=== PATIENT | male | born 1950 | race Caucasian/White ===

== ENCOUNTER 2020-01-19 19:06 | Inpatient (IN) | payer MEDICARE ==
[~2020-01-19] VITALS: Ht 172.7 cm; Wt 58.3 kg
[2020-01-19 19:52] LABS: BASOPHILS # (AUTO) 0.1 (0.0-0.1); EOSINOPHILS % 14.1 % (0.0-6.0); HEMATOCRIT 31.6 % (38.2-49.6); HEMOGLOBIN 10.5 g/dL (14.0-18.0); LYMPHOCYTES # (AUTO) 1.5 (1.0-3.2); LYMPHOCYTES % 20.5 % (18.0-39.1); MEAN CORPUSCULAR HEMOGLOBIN 33.2 pg (28-32); MEAN CORPUSCULAR HGB CONC 33.2 g/dL (31-35); MONOCYTES # (AUTO) 0.5 (0.2-0.8); NEUTROPHILS # (AUTO) 4.2 (2.1-6.9); NEUTROPHILS % 57.1 % (38.7-80.0); PLATELET COUNT 82 x10e3/uL (140-360); RED BLOOD COUNT 3.16 x10e6/uL (4.3-5.7); RED CELL DISTRIBUTION WIDTH 15.2 % (11.7-14.4)
[2020-01-19 20:02] LABS: BILIRUBIN,URINE NEGATIVE (NEGATIVE); CLARITY,URINE HAZY (CLEAR); COLOR,URINE YELLOW (YELLOW); INR 1.12; KETONES,URINE NEGATIVE (NEGATIVE); LEUKOCYTE ESTERASE ,URINE NEGATIVE (NEGATIVE); NITRITE,URINE NEGATIVE (NEGATIVE); PROTEIN,URINE DIPSTICK NEGATIVE (NEGATIVE); URINE UROBILINOGEN 0.2 mg/dL (0.2 - 1)
[2020-01-19 20:03] LABS: BACTERIA,URINE FEW /HPF; EPITHELIAL CELLS,URINE FEW /LPF; PARTIAL THROMBOPLASTIN TIME 29.8 seconds (23.8-35.5); RBC,URINE 0-5 /HPF (0-5); WBC,URINE (MAN) 0-5 /HPF (0-5)
--- NOTE | 2020-01-19 20:05 | Emergency Department Note ---
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 Historian: Patient Arrival Mode: Car Onset (how long ago): day(s) (3) Location: RECTUM Quality: BLACK STOOLS Severity: moderate Onset quality: gradual Duration (how long): day(s) (3) Timing of current episode: intermittent Progression: unchanged Chronicity: new Context: Denies recent illness, Denies recent surgery Relieving factors: none Exacerbating factors: none Associated symptoms: Reports other (HAS FALLEN THREE TIMES IN THE PAST WEEK) Treatments prior to arrival: none Past Medical/Family History Physician Review I have reviewed the patient's past medical and family history. Any updates have been documented here. Past Medical History Recent Fever: No Clinical Suspicion of Infectio: No New/Unexplained Change in Ment: No Past Medical History: Hypertension, Diabetes, COPD Other Medical History: CIRRHOSIS EMPHYSEMA Other Surgery: HEART CATH EYE SX Social History Smoking Cessation: Former smoker Alcohol Use: Occasional Any Illegal Drug Use: No Review of Systems Review of Systems Constitutional: Reports no symptoms EENTM: Reports no symptoms Cardiovascular: Reports no symptoms Respiratory: Reports no symptoms Gastrointestinal: Reports as per HPI Genitourinary: Reports no symptoms Musculoskeletal: Reports no symptoms Integumentary: Reports no symptoms Neurological: Reports no symptoms Psychological: Reports no symptoms Endocrine: Reports no symptoms Hematological/Lymphatic: Reports no symptoms Physical Exam Related Data Allergies: Coded Allergies: No Known Allergies (Unverified , 01/19/20) Triage Vital Signs Vital Signs Date Time Temp Pulse Resp B/P (MAP) Pulse Ox O2 Delivery O2 Flow Rate FiO2 01/19/20 19:12 97.6 56 20 159/65 99 Room Air Vital signs reviewed: Yes Physical Exam CONSTITUTIONAL Constitutional: Present well-developed, Present well-nourished HENT HENT: Present normocephalic, Present atraumatic, Present oropharynx clear/moist, Present nose normal HENT L/R: Present left ext ear normal, Present right ext ear normal EYES Eyes: Reports PERRL, Reports conjunctivae normal NECK Neck: Present ROM normal PULMONARY Pulmonary: Present effort normal, Present breath sounds normal CARDIOVASCULAR Cardiovascular: Present regular rhythm, Present heart sounds normal, Present c apillary refill normal, Present normal rate GASTROINTESTINAL Abdominal: Present soft, Present nontender, Present bowel sounds normal GENITOURINARY Genitourinary: Present guaiac result (POSITIVE), Present other (BLACK STOOL ON RECTAL EXAM WITH RED TINGE) SKIN Skin: Present warm, Present dry MUSCULOSKELETAL Musculoskeletal: Present ROM normal NEUROLOGICAL Neurological: Present alert, Present oriented x 3, Present no gross motor or sensory deficits PSYCHOLOGICAL Psychological: Present mood/affect normal, Present judgement normal Results Laboratory Laboratory Laboratory Tests Test 01/19/20 19:40 01/19/20 19:30 Stool Occult Blood Positive (NEGATIVE) White Blood Count 7.31 x10e3/uL (4.8-10.8) Red Blood Count 3.16 x10e6/uL (4.3-5.7) Hemoglobin 10.5 g/dL (14.0-18.0) Hematocrit 31.6 % (38.2-49.6) Mean Corpuscular Volume 100.0 fL (81-99) Mean Corpuscular Hemoglobin 33.2 pg (28-32) Mean Corpuscular Hemoglobin Concent 33.2 g/dL (31-35) Red Cell Distribution Width 15.2 % (11.7-14.4) Platelet Count 82 x10e3/uL (140-360) Neutrophils (%) (Auto) 57.1 % (38.7-80.0) Lymphocytes (%) (Auto) 20.5 % (18.0-39.1) Monocytes (%) (Auto) 7.0 % (4.4-11.3) Eosinophils (%) (Auto) 14.1 % (0.0-6.0) Basophils (%) (Auto) 1.0 % (0.0-1.0) Neutrophils # (Auto) 4.2 (2.1-6.9) Lymphocytes # (Auto) 1.5 (1.0-3.2) Monocytes # (Auto) 0.5 (0.2-0.8) Eosinophils # (Auto) 1.0 (0.0-0.4) Basophils # (Auto) 0.1 (0.0-0.1) Absolute Immature Granulocyte (auto 0.02 x10e3/uL (0-0.1) Platelet Estimate Slightly decreased Platelet Morphology Comment Normal Prothrombin Time 15.0 seconds (11.9-14.5) Prothromb Time International Ratio 1.12 Activated Partial Thromboplast Time 29.8 seconds (23.8-35.5) Urine Color Yellow (YELLOW) Urine Clarity Hazy (CLEAR) Urine pH 5.5 (5 - 7) Urine Specific Page 1.025 (1.010-1.025) Urine Protein Negative (NEGATIVE) Urine Glucose (UA) Negative (NEGATIVE) Urine Ketones Negative (NEGATIVE) Urine Blood Negative (NEGATIVE) Urine Nitrite Negative (NEGATIVE) Urine Bilirubin Negative (NEGATIVE) Urine Urobilinogen 0.2 mg/dL (0.2 - 1) Urine Leukocyte Esterase Negative (NEGATIVE) Urine RBC 0-5 /HPF (0-5) Urine WBC 0-5 /HPF (0-5) Urine Epithelial Cells Few /LPF (NONE) Urine Bacteria Few /HPF (NONE) Sodium Level 140 mmol/L (136-145) Potassium Level 4.2 mmol/L (3.5-5.1) Chloride Level 108 mmol/L (98-107) Carbon Dioxide Level 23 mmol/L (22-29) Anion Gap 13.2 mmol/L (8-16) Blood Urea Nitrogen 29 mg/dL (7-26) Creatinine 1.56 mg/dL (0.72-1.25) Estimat Glomerular Filtration Rate 44 ML/MIN (60-) BUN/Creatinine Ratio 19 (6-25) Glucose Level 100 mg/dL (74-118) Calcium Level 9.2 mg/dL (8.4-10.2) Total Bilirubin 0.6 mg/dL (0.2-1.2) Aspartate Amino Transf (AST/SGOT) 27 IU/L (5-34) Alanine Aminotransferase (ALT/SGPT) 19 IU/L (0-55) Alkaline Phosphatase 50 IU/L (40-150) Creatine Kinase 47 IU/L (30-200) Creatine Kinase MB 1.80 ng/mL (0-5.0) Troponin I 0.010 ng/mL (0-0.300) Total Protein 6.4 g/dL (6.5-8.1) Albumin 3.7 g/dL (3.5-5.0) Globulin 2.7 g/dL (2.3-3.5) Albumin/Globulin Ratio 1.4 (0.8-2.0) Laboratory Tests Test 01/19/20 19:40 01/19/20 19:30 Stool Occult Blood Positive (NEGATIVE) Lab results reviewed: Yes Imaging Imaging results reviewed: Yes Impressions Procedure: [id number] DX/CHEST SINGLE (PORTABLE) Exam Date: 01/19/20 Exam Time: 1949 REPORT STATUS: Signed EXAMINATION: CHEST SINGLE (PORTABLE) INDICATION: ^WEAKNESS ^[id number] ^1949 ^Y COMPARISON: None FINDINGS: AP view TUBES and LINES: None. LUNGS: Hyperinflated lungs. Mild central vascular congestion. No definite focal consolidations. PLEURA: No pleural effusion or pneumothorax. HEART AND MEDIASTINUM: The cardiomediastinal silhouette is unremarkable. BONES AND SOFT TISSUES: No acute osseous lesion. Multiple upper left-sided old rib fracture deformities. Soft tissues are unremarkable. UPPER ABDOMEN: No free air under the diaphragm. IMPRESSION: Hyperinflated lungs with flattening of the diaphragms, representing changes of COPD. Mild central vascular congestion. No definite focal consolidations. Signed by: Dr. Carlos Childers MD on 01/19/2020 8:19 PM Dictated By: CARLOS CHILDERS MD 18 Transcribed By: NANO on 01/19/202018 COPY TO: MELVA RODRÍGUEZ MD~ Procedure: [id number] CT/CT BRAIN WO Exam Date: 01/19/20 Exam Time: 1999 REPORT STATUS: Signed EXAMINATION: Head CT without contrast. HISTORY:Multiple falls. COMPARISON:None. TECHNIQUE: Multidetector axial images were obtained from the foramen magnum to the vertex without contrast. The images were reconstructed using brain and bone algorithms. Thin section brain images were reformatted into coronal and sagittal planes. Dose modulation, iterative reconstruction, and/or weight based adjustment of the mA/kV was utilized to reduce the radiation dose to as low as reasonably achievable. Intravenous contrast: None IMAGE QUALITY: Suboptimal evaluation due to motion-related streak artifacts. FINDINGS: Skull/scalp: No lytic or blastic. lesions. No surgical changes. Parenchyma: Nonspecific bilateral frontoparietal patchy white matter hypodensity are likely related to small vessel ischemic changes. No acute hemorrhage, mass or acute major vascular territorial infarct. Arteries: No density suggestive of thrombosis. Atherosclerotic calcification in bilateral carotid siphon and V4 segment of left vertebral artery. Dural sinuses: No abnormal density suggestive of thrombosis. Ventricles: No hydrocephalus or displacement. Extra-axial spaces: No abnormal density. Brain volume: Mild generalized cerebral volume loss. Craniocervical junction: No mass, Chiari malformation, or basilar invagination. Sella: No mass. Paranasal/mastoid sinuses: Imaged portions unremarkable. IMPRESSION: No acute intracranial abnormality. Mild supratentorial white matter microvascular ischemic changes. Mild generalized cerebral volume loss. Signed by: Dr. Maria Esther Zheng M.D. on 01/19/2020 8:22 PM Dictated By: MARIA ESTHER ZHENG MD 21 Transcribed By: NANO on 01/19/202021 COPY TO: MELVA RODRÍGUEZ MD~ Assessment & Plan Medical Decision Making MDM PT WITH BLACK STOOLS AND 3 EPISODES OF FALLING THIS PAST WEEK CBC, CMP, PT/PTT, OCCULT STOOL, CT BRAIN, CXR ORDERED TO EVAL FOR ANEMIA, BLOOD IN STOOL, SUBDURAL BLEED, SUBARACHNOID BLEED, COAGULOPATHY, INTRATHORACIC ABNORMALITY I SPOKE WITH DR LOMAX AND Rosario CAMPBELL, ADMIT, NPO, PROTONIX DRIP, LIVER ULTRASOUND IN AM Assessment & Plan Final Impression: (1) Thrombocytopenia (2) Rectal bleeding (3) Occult blood in stools Depart Disposition: ADMITTED Last Vital Signs Date Time Temp Pulse Resp B/P (MAP) Pulse Ox O2 Delivery O2 Flow Rate FiO2 01/19/20 19:12 97.6 56 20 159/65 99 Room Air MELVA RODRÍGUEZ MD Jan 19, 2020 20:05
[2020-01-19 20:12] LABS: ALBUMIN 3.7 g/dL (3.5-5.0); ALBUMIN/GLOBULIN RATIO 1.4 (0.8-2.0); ANION GAP 13.2 mmol/L (8-16); CALCIUM 9.2 mg/dL (8.4-10.2); CREATININE, SERUM 1.56 mg/dL (0.72-1.25); POTASSIUM 4.2 mmol/L (3.5-5.1)
--- OUTSIDE RECORDS SUMMARY | 2020-01-19 20:16 | XMS REPORT | Continuity of Care Document ---
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 Tobacco dependence syndrome Tobacco Dependence Syndrome Problem Active 2019-12-05 00:00:00 [facility] Coronary arteriosclerosis in [place] artery Coronary Ar teriosclerosis in [place] Artery Problem Active 2019-12-05 00:00:00 [place] Moderate chronic obstructive pulmonary disease Moderat e Chronic Obstructive Pulmonary Disease Problem Active 2019-12-05 00:00:00 [facility] Cirrhosis of liver Cirrhosis of Liver Problem Active 2019-12-05 00:00:0 0 [facility] Mixed hyperlipidemia due to type 2 diabetes mellitus M ixed Hyperlipidemia Due to Type 2 Diabetes Mellitus Problem Active 2019-12-05 00:00:00 [facility] Hyperlipidemia Hyperlipidemia Problem Active [facility] Allergies, Adverse Reactions, Alerts This patient has no known allergies or adverse reactions. Social History Smoking Status Start Date Stop Date Source Heavy Tobacco Smoker [facility] Medications Ordered Medication Name Filled Medication Name Start Date Stop Da te Current Medication? Ordering Clinician Indication Dosage Frequency Signature (SIG) Comments Components Source aspirin 81 mg tablet,delayed release Take 1 tablet laurie day by oral route. aspirin 81 mg tablet,delayed release Take 1 tablet every day by oral route. No 1 Q1D aspirin 81 mg t ablet,delayed release Take 1 tablet every day by oral route. [facility] bupropion HCl SR 150 mg tablet,12 hr jeyson tained-release Take 1 tablet twice a day by oral route as directed. bupropion HCl SR 150 mg tablet,12 hr jeyson tained- release Take 1 tablet twice a day by oral route as directed. No 1 BID bupropion HCl SR 150 mg tablet,12 hr sustained-release Take 1 tablet twice a day by oral route as directed. [facility] Calcium 600 + D(3) take one tablet twice a day Calcium 600 + D(3) take one tablet twice a day No Calci um 600 + D(3) take one tablet twice a day [facility] ice furosemide 20 mg tablet Take 1 tablet every day by ora l route. furosemide 20 mg tablet Take 1 tablet every day by oral route. No 1 Q1D furosemide 20 mg tablet Take 1 tablet every day by oral route. [facility] magnesium 250 mg (as magnesium oxide) ta blet Take 1 tablet every day by oral route in the evening. magnesium 250 mg (as magnesium oxide) ta blet Take 1 tablet every day by oral route in the evening. No 1 Q1D magnesium 250 mg (as magnesium oxide) tablet Take 1 tablet every day by oral route in the evening. [facility] metformin ER 500 mg 24 hr tablet,extende d release Take 1 tablet every day by oral route. metformin ER 500 mg 24 hr tablet,extende d release Take 1 tablet every day by oral route. No 1 Q1D metformin ER 500 mg 24 hr tablet,extended release Take 1 tablet every day by oral route. [facility] Multivitamin 50 Plus one daily Multivitamin 50 Plus one daily No Multivitamin 50 Plus one daily [facility] nadolol 20 mg tablet Take 1 tablet every day by oral r oute. nadolol 20 mg tablet Take 1 tablet every day by oral route. No 1 Q1D nadolol 20 mg tablet Take 1 tablet every day by oral route. [facility] naproxen 500 mg tablet Take 1 tablet twice a day by or al route as needed. naproxen 500 mg tablet Take 1 tablet twice a day by oral route as needed. No 1 BID naproxen 500 mg tablet Take 1 tablet twice a day by oral route as needed. [facility] ice potassium gluconate 595 mg (99 mg) table t Take 1 tablet twice a day by oral route. potassium gluconate 595 mg (99 mg) table t Take 1 tablet twice a day by oral route. No 1 BID potassium gl uconate 595 mg (99 mg) tablet Take 1 tablet twice a day by oral route. [facility] pravastatin 40 mg tablet Take 1 tablet every day by or al route. pravastatin 40 mg tablet Take 1 tablet every day by oral route. No 1 Q1D pravastatin 40 mg tablet Take 1 tablet every day by oral route. [facility] spironolactone 50 mg tablet Take 1 tablet every day by oral route. spironolactone 50 mg tablet Take 1 tablet every day by oral route. No 1 Q1D spironolactone 50 mg tablet Take 1 tablet every day by oral rout e. [facility] trazodone 50 mg tablet Take 2 tablets every day by ora l route at bedtime. trazodone 50 mg tablet Take 2 tablets every day by oral route at bedtime. No 2 Q1D trazodone 50 mg tablet Take 2 tablets every day by oral route at bedtime. [facility] ice Trelegy Ellipta 100 mcg-62.5 mcg-25 mcg powder for inhalation Inhale 1 puff every day by inhalation route. Trelegy Ellipta 100 mcg-62.5 mcg-25 mcg powder for inhalation Inhale 1 puff every day by inhalation route. No 1puff(s) Q1D Trelegy Ellipta 100 mcg-62.5 mcg-25 mcg powder for inhalation Inhale 1 puff every day by inhalation route. [facility] Immunizations Ordered Immunization Name Filled Immunization Name Date Status Comments Source influenza, high-dose, quadrivalent influenza, high-dose, rock drivalent 2019-11-29 17:38:52 Completed [facility] pneumococcal conjugate PCV 13 pneumococcal conjugate PCV 13 2019 17:38:15 Completed [facility] Vital Signs Vital Name Observation Time Observation Value Comments Source BP Diastolic 2019-11-29 00:00:00 69 mm[Hg] [facility] Height 2019-11-29 00:00:00 68 [in_i] [facility] BMI (Body Mass Index) 2019-11-29 00:00:00 20.4 kg/m2 [facility] BP Systolic 2019-11-29 00:00:00 153 mm[Hg] [facility] Body Weight 2019-11-29 00:00:00 134.4 [lb_av] [facility] Procedures This patient has no known procedures. Plan of Care Planned Activity Planned Date Details Comments Source Diagnostic Test Pending 2019-11-29 00:00:00 CBC w/ auto diff [code = CBC w/ auto diff] [facility] Diagnostic Test Pending 2019-11-29 00:00:00 CMP, serum or pl asma [code = CMP, serum or plasma] [facility] Diagnostic Test Pending 2019-11-29 00:00:00 lipid panel, ser um [code = lipid panel, serum] [facility] Diagnostic Test Pending 2019-11-29 00:00:00 iron + TIBC + fe rritin, serum [code = iron + TIBC + ferritin, serum] [facility] Diagnostic Test Pending 2019-11-29 00:00:00 PT/PTT, plasma [ code = PT/PTT, plasma] [facility] Diagnostic Test Pending 2019-11-29 00:00:00 HbA1c (hemoglobi n A1c), blood [code = HbA1c (hemoglobin A1c), blood] [facility] Diagnostic Test Pending 2019-11-29 00:00:00 microalbumin/cre atinine, mass ratio, urine [code = microalbumin/creatinine, mass ratio, urine] [facility] Diagnostic Test Pending 2019-11-29 00:00:00 TSH, serum or pl asma [code = TSH, serum or plasma] [facility] Encounters Start Date/Time End Date/Time Encounter Type Admission Type [facility] Facility Care Department Encounter ID Source 2019-11-29 00:00:00 2019-11-29 00:00:00 Jeanna Nicholas MD: [id number] [facility], [address], [place] [address], Ph. [id number] (ARG) [id number] [facility] Results This patient has no known results.
[2020-01-19 20:19] LABS: CREATINE KINASE MB 1.8 ng/mL (0-5.0)
--- NOTE | 2020-01-19 20:22 | Diagnostic Imaging Report ---
EXAMINATION: CHEST SINGLE (PORTABLE) INDICATION: ^WEAKNESS ^[id number] ^1950 ^Y COMPARISON: None FINDINGS: AP view TUBES and LINES: None. LUNGS: Hyperinflated lungs. Mild central vascular congestion. No definite focal consolidations. PLEURA: No pleural effusion or pneumothorax. HEART AND MEDIASTINUM: The cardiomediastinal silhouette is unremarkable. BONES AND SOFT TISSUES: No acute osseous lesion. Multiple upper left-sided old rib fracture deformities. Soft tissues are unremarkable. UPPER ABDOMEN: No free air under the diaphragm. IMPRESSION: Hyperinflated lungs with flattening of the diaphragms, representing changes of COPD. Mild central vascular congestion. No definite focal consolidations. Signed by: Dr. Carlos Medley MD on 01/19/2020 8:19 PM
[2020-01-19 20:23] LABS: PLATELET ESTIMATE SLIGHTLY DECREASED; PLATELET MORPHOLOGY COMMENT NORMAL
--- NOTE | 2020-01-19 20:26 | Diagnostic Imaging Report ---
EXAMINATION: Head CT without contrast. HISTORY:Multiple falls. COMPARISON:None. TECHNIQUE: Multidetector axial images were obtained from the foramen magnum to the vertex without contrast. The images were reconstructed using brain and bone algorithms. Thin section brain images were reformatted into coronal and sagittal planes. Dose modulation, iterative reconstruction, and/or weight based adjustment of the mA/kV was utilized to reduce the radiation dose to as low as reasonably achievable. Intravenous contrast: None IMAGE QUALITY: Suboptimal evaluation due to motion-related streak artifacts. FINDINGS: Skull/scalp: No lytic or blastic. lesions. No surgical changes. Parenchyma: Nonspecific bilateral frontoparietal patchy white matter hypodensity are likely related to small vessel ischemic changes. No acute hemorrhage, mass or acute major vascular territorial infarct. Arteries: No density suggestive of thrombosis. Atherosclerotic calcification in bilateral carotid siphon and V4 segment of left vertebral artery. Dural sinuses: No abnormal density suggestive of thrombosis. Ventricles: No hydrocephalus or displacement. Extra-axial spaces: No abnormal density. Brain volume: Mild generalized cerebral volume loss. Craniocervical junction: No mass, Chiari malformation, or basilar invagination. Sella: No mass. Paranasal/mastoid sinuses: Imaged portions unremarkable. IMPRESSION: No acute intracranial abnormality. Mild supratentorial white matter microvascular ischemic changes. Mild generalized cerebral volume loss. Signed by: Dr. Maria Esther Zheng M.D. on 01/19/2020 8:22 PM
--- OUTSIDE RECORDS SUMMARY | 2020-01-19 21:09 | XMS REPORT | Continuity of Care Document ---
Author Author [facility] Organization 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[place] m Problem Active 2019-12-05 00:00:00 [facility] Tobacco dependence syndrome Tobacco Dependence Syndrome Problem Active 2019-12-05 00:00:00 [facility] Coronary arteriosclerosis in [place] artery Coronary Ar teriosclerosis in [place] Artery Problem Active 2019-12-05 00:00:00 [facility] Moderate chronic obstructive pulmonary disease Moderat e Chronic Obstructive Pulmonary Disease Problem Active 2019-12-05 00:00:00 [facility] Cirrhosis of liver Cirrhosis of Liver Problem Active 2019-12-05 00:00:0 0 [facility] Mixed hyperlipidemia due to type 2 diabetes mellitus M ixed Hyperlipidemia Due to Type 2 Diabetes Mellitus Problem Active 2019-12-05 00:00:00 [facility] Hyperlipidemia Hyperlipidemia Problem Active [facility] Allergies, Adverse Reactions, Alerts This patient has no known allergies or adverse reactions. Social History Smoking Status Start Date Stop Date Source Heavy Tobacco Smoker [facility] Medications Ordered Medication Name Filled Medication Name [...] 1 tablet every day by oral route. [facility] b[facility] HCl SR 150 mg tablet,12 [...] a day by oral route as directed. [facility] Calcium 600 + D(3) take one tablet twice a day Calcium 600 + D(3) take one tablet twice a day No Calci um 600 + D(3) take one tablet twice a day [facility] furosemide 20 mg tablet Take 1 tablet every day by ora l route. furosemide 20 mg tablet Take 1 tablet every day by oral route. No 1 Q1D furosemide 20 mg tablet Take 1 tablet every day by oral route. [facility] magnesium 250 mg (as magnesium oxide) ta blet Take 1 tablet every day by oral route in the evening. magnesium 250 mg (as magnesium oxide) ta blet Take 1 tablet every day by oral route in the evening. No 1 Q1D magnesium 250 mg (as magnesium oxide) tablet Take 1 tablet every day by oral route in the evening. [facility] metformin ER 500 mg 24 hr tablet,extende d release Take 1 tablet every day by oral route. metformin ER 500 mg 24 hr tablet,extende d release Take 1 tablet every day by oral route. No 1 Q1D metformin ER 500 mg 24 hr tablet,extended release Take 1 tablet every day by oral route. [facility] Multivitamin 50 Plus one daily Multivitamin 50 Plus one daily No Multivitamin 50 Plus one daily [facility] nadolol 20 mg tablet Take 1 tablet every day by oral r oute. nadolol 20 mg tablet Take 1 tablet every day by oral route. No 1 Q1D nadolol 20 mg tablet Take 1 tablet every day by oral route. [facility] naproxen 500 mg tablet Take 1 tablet twice a day by or al route as needed. naproxen 500 mg tablet Take 1 tablet twice a day by oral route as needed. No 1 BID naproxen 500 mg tablet Take 1 tablet twice a day by oral route as needed. [facility] ice potassium gluconate 595 mg (99 mg) table t Take 1 tablet twice a day by oral route. potassium gluconate 595 mg (99 mg) table t Take 1 tablet twice a day by oral route. No 1 BID potassium gl uconate 595 mg (99 mg) tablet Take 1 tablet twice a day by oral route. [place] pravastatin 40 mg tablet Take 1 tablet every day by or al route. pravastatin 40 mg tablet Take 1 tablet every day by oral route. No 1 Q1D pravastatin 40 mg tablet Take 1 tablet every day by oral route. [facility] spironolactone 50 mg tablet Take 1 tablet every day by oral route. spironolactone 50 mg tablet Take 1 tablet every day by oral route. No 1 Q1D spironolactone 50 mg tablet Take 1 tablet every day by oral rout e. [facility] trazodone 50 mg tablet Take 2 tablets every day by ora l route at bedtime. trazodone 50 mg tablet Take 2 tablets every day by oral route at bedtime. No 2 Q1D trazodone 50 mg tablet Take 2 tablets every day by oral route at bedtime. [facility] Trelegy Ellipta 100 mcg-62.5 mcg-25 mcg powder for inhalation Inhale 1 puff every day by inhalation route. Trelegy Ellipta 100 mcg-62.5 mcg-25 mcg powder for inhalation Inhale 1 puff every day by inhalation route. No 1puff(s) Q1D Trelegy Ellipta 100 mcg-62.5 mcg-25 mcg powder for inhalation Inhale 1 puff every day by inhalation route. [facility] Immunizations Ordered Immunization Name Filled Immunization Name Date Status Comments Source influenza, high-dose, quadrivalent influenza, high-dose, rock drivalent 2019-11-29 17:38:52 Completed [facility] pneumococcal conjugate PCV 13 pneumococcal conjugate PCV 13 2019 17:38:15 Completed [facility] Vital Signs Vital Name Observation Time Observation Value Comments Source BP Diastolic 2019-11-29 00:00:00 69 mm[Hg] [facility] Height 2019-11-29 00:00:00 68 [in_i] [facility] BMI (Body Mass Index) 2019-11-29 00:00:00 20.4 kg/m2 [facility] BP Systolic 2019-11-29 00:00:00 153 mm[Hg] [facility] Body Weight 2019-11-29 00:00:00 134.4 [lb_av] [facility] Procedures This patient has no known procedures. Plan of Care Planned Activity Planned Date Details Comments Source Diagnostic Test Pending 2019-11-29 00:00:00 CBC w/ auto diff [code = CBC w/ auto diff] [facility] Diagnostic Test Pending 2019-11-29 00:00:00 CMP, serum or pl asma [code = CMP, serum or plasma] [facility] Diagnostic Test Pending 2019-11-29 00:00:00 lipid panel, ser um [code = lipid panel, serum] [facility] Diagnostic Test Pending 2019-11-29 00:00:00 iron + TIBC + fe rritin, serum [code = iron + TIBC + ferritin, serum] [facility] Diagnostic Test Pending 2019-11-29 00:00:00 PT/PTT, plasma [ code = PT/PTT, plasma] [facility] Diagnostic Test Pending 2019-11-29 00:00:00 HbA1c (hemoglobi n A1c), blood [code = HbA1c (hemoglobin A1c), blood] [facility] Diagnostic Test Pending 2019-11-29 00:00:00 microalbumin/cre atinine, mass ratio, urine [code = microalbumin/creatinine, mass ratio, urine] [facility] Diagnostic Test Pending 2019-11-29 00:00:00 TSH, serum or pl asma [code = TSH, serum or plasma] [facility] Encounters Start Date/Time End Date/Time Encounter Type Admission Type [facility] Care Department Encounter ID Source 2019-11-29 00:00:00 2019-11-29 00:00:00 Jeanna Nicholas MD: [id number], [address], [place] [address], Ph. [facility] - _BERNIE_Monty (WAG) [id number] [facility] Results Test Description Test Time Test Comments Results Result Comments Source CT BRAIN WO 2020-01-19 20:18:00 [facility] : 1950 Sex: M [facility] [address] [address] Patient Name: CHRISTY MULLER MR #: [id number] : 1950 Age/Sex: 69/M Req #: [id number] Adm Physician: Ordered by: MELVA RODRÍGUEZ MD Report #: [id number] Location: ER Room/Bed: Procedure: [id number] CT/CT BRAIN WO Exam Date: 01/19/20 Exam Time: 1999 REPORT STATUS: Signed EXAMINATION: Head CT without contrast. HISTORY:Multiple falls. COMPARISON:None. TECHNIQUE: Multidetector axial images were obtained from the foramen magnum to the vertex without contrast. The images were reconstructed using brain and bone algorithms. Thin section brain images were reformatted into coronal and sagittal planes. Dose modulation, iterative reconstruction, and/or weight based adjustment of the mA/kV was utilized to reduce the radiation dose to as low as reasonably achievable. Intravenous contrast: None IMAGE QUALITY: Suboptimal evaluation due to motion-related streak artifacts. FINDINGS: Skull/scalp: No lytic or blastic. lesions. No surgical changes. Parenchyma: Nonspecific bilateral frontoparietal patchy white matter hypodensity are likely related to small vessel ischemic changes. No acute hemorrhage, mass or acute major vascular territorial infarct. Arteries: No density suggestive of thrombosis. Atherosclerotic calcification in bilateral carotid siphon and V4 segment of left vertebral artery. Dural sinuses: No abnormal density suggestive of thrombosis. Ventricles: No hydrocephalus or displacement. Extra-axial spaces: No abnormal density. Brain volume: Mild generalized cerebral volume loss. Craniocervical junction: No mass, Chiari malformation, or basilar invagination. Sella: No mass. Paranasal/mastoid sinuses: Imaged portions unremarkable. IMPRESSION: No acute intracranial abnormality. Mild supratentorial white matter microvascular ischemic changes. Mild generalized cerebral volume loss. Signed by: Dr. Maria Esther Zheng M.D. on 01/19/2020 8:22 PM Dictated By: MARIA ESTHER ZHENG MD 21 Transcribed By: NANO on 01/19/202021 COPY TO: MELVA RODRÍGUEZ MD CHEST SINGLE (PORTABLE) 2020-01-19 20:17:00 [facility] : 1950 Sex: M [address] [address] Patient Name: CHRISTY MULLER MR #: [id number] : 1950 Age/Sex: 69/M Req #: [id number] [facility] Physician: Ordered by: MELVA RODRÍGUEZ MD Report #: [id number] Location: Room/Bed: Procedure: [id number] DX/CHEST SINGLE (PORTABLE) Exam Date: 01/19/20 Exam Time: 1949 REPORT STATUS: Signed EXAMINATION: CHEST SINGLE ([place] BLE) INDICATION: WEAKNESS 20200119 Y COMPARISON: None FINDINGS: AP view TUBES and LINES: None. LUNGS: Hyperinflated lungs. Mild central vascular congestion. No definite focal consolidations. PLEURA: No pleural effusion or pneumothorax. HEART AND MEDIASTINUM: The cardiomediastinal silhouette is unremarkable. BONES AND SOFT TISSUES: No acute osseous lesion. Multiple upper left-sided old rib fracture deformities. Soft tissues are unremarkable. UPPER ABDOMEN: No free air under the diaphragm. IMPRESSION: Hyperinflated lungs with flattening of the diaphragms, representing changes of COPD. Mild central vascular congestion. No definite focal consolidations. Signed by: Dr. Carlos Childers MD on 01/19/2020 8:19 PM Dictated By: CARLOS CHILDERS MD 18 Transcribed By: NANO on 01/19/202018 COPY TO: MELVA RODRÍGUEZ MD
[2020-01-19 22:26] VITALS: BP 140/58
[2020-01-19 22:38] VITALS: BP 140/58
[2020-01-19 22:41] VITALS: BP 140/58
[2020-01-19] MEDS ORDERED: ACETAMINOPHEN 325 MG TAB PO PRN (22:45)
[2020-01-19] MEDS ORDERED: HYDROCODONE/APAP 5MG-325MG TAB PO PRN (22:45)
[2020-01-19] MEDS ORDERED: MELATONIN 5 MG TABLET PO PRN (22:45)
[2020-01-19] MEDS ORDERED: DOCUSATE SODIUM 100 MG CAP PO PRN (22:45)
[2020-01-19] MEDS ORDERED: BENZONATATE 100 MG CAP PO PRN (22:45)
[2020-01-19] MEDS ORDERED: POLYETHYLENE GLYCOL 3350 17 GM PACK PO PRN (22:45)
[2020-01-19] MEDS ORDERED: ALBUTEROL/IPRATROPIUM 3 ML NEB NEB PRN (22:45)
[2020-01-19] MEDS ORDERED: HYDRALAZINE HCL 20 MG/ML VIAL IV PRN (22:45)
[2020-01-19] MEDS ORDERED: DEXTROSE 50% SYRINGE 50 ML IV PRN (22:45)
[2020-01-19] MEDS ORDERED: ONDANSETRON HCL INJ 2MG/ML 2ML 2 MG/ML VIAL IV PRN (22:45)
[2020-01-19] MEDS ORDERED: METFORMIN HCL500 MG PO (22:52)
[2020-01-19] MEDS ORDERED: PRAVACHOL40 MG PO (22:52)
[2020-01-19] MEDS ORDERED: LASIX20 MG PO (22:52)
[2020-01-19] MEDS ORDERED: NADOLOL20 MG PO (22:52)
[2020-01-19] MEDS ORDERED: PANTOPRAZOLE SO40 MG PO (22:52)
[2020-01-19] MEDS ORDERED: ASPIRIN EC81 MG PO (22:52)
[2020-01-19] MEDS ORDERED: CALCIUM 600 +1 EACH PO (22:55)
[2020-01-19] MEDS ORDERED: MULTI-VITAMIN1 EACH PO (22:55)
[2020-01-19] MEDS ORDERED: ANORO ELLIPTA1 EACH INH (22:56)
[2020-01-19] MEDS ORDERED: OCTREOTIDE ACETATE 0.05 MG/ML AMP IV STA (23:14)
[2020-01-19] MEDS ORDERED: OCTREOTIDE ACETATE 600 MCG in SODIUM CHLORIDE 0.9% 250ML 300 ML IV SCH (23:15)
[2020-01-19] MEDS: SODIUM CHLORIDE 0.9% 1000ML 1,000 ML IV SCH (23:20)
--- NOTE | 2020-01-19 23:35 | NUR ---
Dr. Tevin Nix here to see patient. Received orders to start patient on octreotide drip.
[2020-01-19] MEDS ORDERED: OCTREOTIDE ACETATE 500 MCG in SODIUM CHLORIDE 0.9% 250ML 249 ML IV SCH (23:45)
[2020-01-20] VITALS (8 sets, daily range): BP systolic 101–134; BP diastolic 47–75
[2020-01-20] MEDS ORDERED: PANTOPRAZOLE 40 MG 10ML VIAL ONE ×4 (00:02→17:31)
[2020-01-20] MEDS ORDERED: SODIUM CHLORIDE 0.9% 50ML 50 ML ONE ×4 (00:04→17:32)
[2020-01-20] MEDS ORDERED: SODIUM CHLORIDE 0.9% 250ML 250 ML ONE ×2 (00:28→18:14)
[2020-01-20] MEDS ORDERED: OCTREOTIDE ACETATE 500 MCG/ML VIAL IV ONE (00:30)
[2020-01-20] MEDS ORDERED: SODIUM CHLORIDE 0.9% 250ML 250 ML IV ONE (00:30)
[2020-01-20] MEDS ORDERED: OCTREOTIDE ACETATE 1 ML ONE (00:32)
[2020-01-20] MEDS: OCTREOTIDE ACETATE 500 MCG in SODIUM CHLORIDE 0.9% 250ML 249 ML IV SCH ×3 (00:39→20:30)
[2020-01-20 00:43] LABS: FERRITIN 90.51 ng/mL (21.81-274.66)
[2020-01-20 01:00] LABS: HEMATOCRIT 33.4 % (38.2-49.6); HEMOGLOBIN 10.6 g/dL (14.0-18.0)
[2020-01-20] MEDS: PANTOPRAZOLE INJ 40 MG in SODIUM CHLORIDE 0.9% 50ML 50 ML IV SCH ×7 (05:17→22:00)
[2020-01-20 05:51] LABS: BASOPHILS % 1.2 % (0.0-1.0); EOSINOPHILS # (AUTO) 0.4 (0.0-0.4); EOSINOPHILS % 14.5 % (0.0-6.0); HEMATOCRIT 27.1 % (38.2-49.6); HEMOGLOBIN 9.3 g/dL (14.0-18.0); LYMPHOCYTES # (AUTO) 0.7 (1.0-3.2); LYMPHOCYTES % 30.6 % (18.0-39.1); MEAN CORPUSCULAR HEMOGLOBIN 34.7 pg (28-32); MEAN CORPUSCULAR HGB CONC 34.3 g/dL (31-35); MEAN CORPUSCULAR VOLUME 101.1 fL (81-99); MONOCYTES # (AUTO) 0.2 (0.2-0.8); MONOCYTES % 6.6 % (4.4-11.3); NEUTROPHILS # (AUTO) 1.1 (2.1-6.9); NEUTROPHILS % 46.7 % (38.7-80.0); RED BLOOD COUNT 2.68 x10e6/uL (4.3-5.7); RED CELL DISTRIBUTION WIDTH 14.7 % (11.7-14.4)
[2020-01-20 06:15] LABS: ALBUMIN 2.8 g/dL (3.5-5.0); ALBUMIN/GLOBULIN RATIO 1.2 (0.8-2.0); ANION GAP 11.5 mmol/L (8-16); CHOL/HDL RATIO 2.6 (3.9-4.7); CREATININE, SERUM 1.39 mg/dL (0.72-1.25); MAGNESIUM 1.5 MG/DL (1.3-2.1); POTASSIUM 4.5 mmol/L (3.5-5.1)
[2020-01-20 06:33] LABS: PLATELET COUNT 47 x10e3/uL (140-360)
--- NOTE | 2020-01-20 07:00 | NUR ---
BEDSIDE SHIFT REPORT FROM REVENUE AUDIT CLERK RN. PT DENIES NEEDS AT THIS TIME.
[2020-01-20] MEDS: SODIUM CHLORIDE 0.9% 1000ML 1,000 ML IV SCH ×2 (08:03→17:29)
--- NOTE | 2020-01-20 09:50 | Diagnostic Imaging Report ---
EXAM: US LIVER DATE: 01/20/2020 8:31 AM INDICATION: ^GI BLEED ^[id number] ^0831 ^Y COMPARISON: None TECHNIQUE: Transverse and longitudinal holloway scale and color doppler sonographic images of the right upper quadrant were obtained. FINDINGS: LIVER 10.6 cm in the right midclavicular line. Coarsened echotexture of the liver with mild nodularity. No suspicious mass. GALLBLADDER Echogenic intraluminal shadowing filling defects are noted. Negative for gallbladder wall thickening or pericholecystic fluid. Negative for gallbladder distention. Negative for sonographic Thompson's sign. BILE DUCTS No intra nor extra-hepatic biliary dilation. Common bile duct measures 0.6cm PANCREAS: Visualized portions are normal. RIGHT KIDNEY: 10.0 cm Echogenicity: Normal Collecting System: No hydronephrosis Stones: None Cyst/Mass: None VESSELS: Aorta: Visualized portions are within normal size limits Inferior Vena Cava: Visualized portions are normal Main Portal Vein: 1.0 cm, normal size with hepatopetal flow. FREE FLUID: Trace perihepatic ascites is noted. IMPRESSION: 1. Cirrhotic liver morphology. Trace ascites is noted. 2. Cholelithiasis. Signed by: Kervin Tolliver MD on 01/20/2020 9:46 AM
[2020-01-20 12:19] LABS: HEMOGLOBIN 9.5 g/dL (14.0-18.0)
[2020-01-20] MEDS ORDERED: PROPOFOL IV EMULSION 10 MG/ML 20 ML VIAL ONE (12:21)
[2020-01-20] MEDS ORDERED: GLYCOPYRROLATE INJ 0.2 MG/ML VIAL ONE (12:51)
--- NOTE | 2020-01-20 14:05 | NUR ---
Discontinuing skilled PT services since patient is modified independent in functional mobility.Thank you Addendum: 01/20/20 at 1406 by Rohith tran PT Amended: Links added.
[2020-01-20 17:14] LABS: HEMATOCRIT 25.9 % (38.2-49.6); HEMOGLOBIN 8.8 g/dL (14.0-18.0)
--- NOTE | 2020-01-20 19:12 | NUR ---
PT TO ENDO FOR EGD. PLATELETS RUNNING. NURSES AWARE, TRANSFUSION SHEET SENT WITH NURSES TO FINISH TRANSFUSION.
--- NOTE | 2020-01-20 19:40 | NUR ---
PT RETURNED FROM EGD AT 2024. PT IS ALERT AND ORIENTED X3. T 97.6 HR 53 R 16 B/P 122/ 58.TELE ON. AT BEDSIDE BRIEFLY THEN WENT HOME. [facility]FP CONTINUES TO INFUSE VIA PIV RT ARM. SITE HEALTHY. NO SIGNS OF REACTION. ORDER RECEIVED PER DR CAMPBELL FOR FULL LIQUID DIET. WILL RESTART PTROTONIX DRIP 10 ML/HR AND SANDOSTATIN 25ML/HR TO BE RESTARTED ORDERED. NS TO BE RESTARTED AT 100 ML/HR. CALL LIGHT WITHIN REACH. BED LOCKED AND IN LOW POSITION. URINAL AT BEDSIDE. BED ALARM ON.
--- NOTE | 2020-01-20 23:28 | Operative Report ---
DATE OF PROCEDURE: 01/20/2020 SURGEON: Freedom Nix MD PROCEDURE: EGD with biopsies. INDICATIONS FOR EGD: Anemia, history of melena. MEDICATIONS: The patient was done under MAC, please see anesthesiologist's note. PROCEDURE IN DETAIL: With the patient in left lateral decubitus position, a flexible fiberoptic Olympus gastroscope was introduced into the esophagus under direct visualization without any difficulty. There were 2 esophageal varices were noted without active bleeding or stigmata of recent hemorrhage. The scope was then advanced with ease into the stomach traversing a small hiatal hernia. Mucosa overlying the antrum and the body revealed some patchy mild changes compatible with portal hypertensive gastropathy and biopsies were obtained. Pylorus was intubated with ease and the scope was advanced all the way to the second portion of the duodenum. The mucosa overlying the proximal second portion appeared to be within normal limits. The mucosa overlying mid and distal bulb was excessively nodular and biopsied were obtained. The scope was then withdrawn back into the stomach and retroflexed. Mucosa overlying the fundus and the cardia appeared to be within normal limits. The scope was then straightened out, it was subsequently withdrawn. The patient tolerated the procedure well. IMPRESSION: 1. Grade 2 esophageal varices without active bleeding or stigmata of recent hemorrhage. 2. Small hiatal hernia. 3. Portal hypertensive gastropathy, mild, biopsied. 4. Nodular duodenal bulb, biopsied. PLAN: Follow up histology. Follow H and H. Findings do not necessarily explain the patient's blood loss. Might benefit from a colonoscopy. Freedom Nix MD [facility] [place] [place] /[id number] cc: Kavita Montano MD
[2020-01-21] VITALS (7 sets, daily range): BP systolic 106–131; BP diastolic 45–55
[2020-01-21] MEDS ORDERED: SODIUM CHLORIDE 0.9% 50ML 50 ML ONE ×5 (00:30→23:24)
[2020-01-21] MEDS ORDERED: PANTOPRAZOLE 40 MG 10ML VIAL ONE ×4 (00:30→23:23)
[2020-01-21] MEDS: SODIUM CHLORIDE 0.9% 1000ML 1,000 ML IV SCH ×3 (02:57→23:31)
[2020-01-21] MEDS: PANTOPRAZOLE INJ 40 MG in SODIUM CHLORIDE 0.9% 50ML 50 ML IV SCH ×5 (02:57→23:20)
--- NOTE | 2020-01-21 04:08 | History and Physical ---
CHIEF COMPLAINT: Black tarry stool. HISTORY OF PRESENT ILLNESS: The patient was seen and evaluated at approximately 1:00 p.m. this afternoon with nursing staff. HISTORY OF PRESENT ILLNESS: This is a 69-year-old male with known history of alcoholic liver cirrhosis, comes in with black tarry stool ongoing for the last several days at home. The patient reports his last alcoholic drink was approximately 7 to 10 days ago. He denies any chest pain or any palpitations. Denies any blood thinners at home or any anti-platelet therapy. The patient was seen and evaluated at bedside on the medical floor. He is currently doing well. He is scheduled for EGD later this afternoon. REVIEW OF SYSTEMS: Pertinent positives; black tarry stool. The rest of 14-point review of systems are reviewed with the patient and are negative. ALLERGIES: NO KNOWN DRUG ALLERGIES. HOME MEDICATIONS: 1. Aspirin. 2. Lasix. 3. Metformin. 4. Nadolol. 5. Protonix. 6. Pravastatin. PAST MEDICAL HISTORY: 1. Alcoholic liver cirrhosis, chronic alcoholic. 2. Type 2 diabetes. 3. Hypertension. 4. Hyperlipidemia. PAST SURGICAL HISTORY: Reports none. FAMILY HISTORY: Hypertension and diabetes. SOCIAL HISTORY: He is a chronic alcoholic, reports last drink about 10 days ago. He said he is slow down tremendously. Denies any hallucinations, visual or auditory. No smoking. No drugs. LABORATORY DATA: Labs show white count 2.4, hemoglobin 9.3, hematocrit 27, platelets of 47. Coagulation PT 15, INR 1.1, PTT 29.8. Chemistry, sodium 140, potassium 4.5, chloride 112, bicarb 21, anion gap of 11, BUN 27, creatinine 1.39, glucose 141. LFTs within normal range. LDL is 44. Vitamin B12 of 1462. Urinalysis negative. Occult blood was positive. Coronavirus is pending. MICROBIOLOGY: None. IMAGING STUDIES: CT brain shows no acute findings. Chest x-ray, hyperinflated with flattening of the diaphragms consistent with COPD. Liver ultrasound shows cirrhotic liver morphology. Trace ascites. Cholelithiasis. PHYSICAL EXAMINATION: VITAL SIGNS: Temperature 97.6, pulse is 60, respiratory rate 17, blood pressure is 114/56, pulse ox 98% on room air. GENERAL: Not in acute distress. Alert, oriented x3. Cooperative on examination. PULMONARY: Clear to auscultation bilaterally. No wheezing, rales, or rhonchi. No crackles appreciated. CARDIOVASCULAR: Positive S1, S2. No murmurs, rubs, or gallops appreciated. ABDOMEN: Soft nondistended, nontender to palpation. Bowel sounds present. MUSCULOSKELETAL: Strength is 5/5 throughout. NEUROLOGIC: Cranial nerves 2 through 12 are grossly intact. Alert and oriented x3. IMPRESSION: 1. Black tarry stool concerning for underlying gastrointestinal bleed. 2. Anemia. 3. Alcoholic liver cirrhosis. 4. Chronic alcoholic. 5. Type 2 diabetes. PLAN: At this time, the patient is n.p.o. Scheduled for EGD later this afternoon. Continue with Protonix drip. Await final results from EGD to see the next plan of care. Monitor hemoglobin once he is back from this procedure. Plan of care discussed with patient, nursing staff, and the patient's at the bedside. MD REYNA Mullins/JOHANNY /[id number]
--- NOTE | 2020-01-21 07:00 | NUR ---
BEDSIDE SHIFT REPORT FROM TOUR DRIVER RN. PT DENIES NEEDS AT THIS TIME.
[2020-01-21 07:47] LABS: BASOPHILS % 1.3 % (0.0-1.0); EOSINOPHILS # (AUTO) 0.3 (0.0-0.4); EOSINOPHILS % 10.8 % (0.0-6.0); HEMATOCRIT 25.4 % (38.2-49.6); HEMOGLOBIN 8.5 g/dL (14.0-18.0); LYMPHOCYTES # (AUTO) 0.6 (1.0-3.2); LYMPHOCYTES % 23.7 % (18.0-39.1); MEAN CORPUSCULAR HEMOGLOBIN 33.5 pg (28-32); MEAN CORPUSCULAR HGB CONC 33.5 g/dL (31-35); MONOCYTES # (AUTO) 0.2 (0.2-0.8); MONOCYTES % 6.9 % (4.4-11.3); NEUTROPHILS # (AUTO) 1.3 (2.1-6.9); NEUTROPHILS % 57.3 % (38.7-80.0); PLATELET COUNT 56 x10e3/uL (140-360); RED BLOOD COUNT 2.54 x10e6/uL (4.3-5.7); RED CELL DISTRIBUTION WIDTH 14.8 % (11.7-14.4)
[2020-01-21] MEDS: OCTREOTIDE ACETATE 500 MCG in SODIUM CHLORIDE 0.9% 250ML 249 ML IV SCH ×2 (08:55→18:29)
[2020-01-21 11:56] LABS: HEMATOCRIT 24.7 % (38.2-49.6); HEMOGLOBIN 8.4 g/dL (14.0-18.0)
[2020-01-21 18:03] LABS: HEMATOCRIT 27.1 % (38.2-49.6); HEMOGLOBIN 9.1 g/dL (14.0-18.0)
--- NOTE | 2020-01-21 19:38 | NUR ---
BEDSIDE SHIFT REPORT RECEIVED FROM DAY RN. PT IS A&O X3. RESPIRATIONS ARE EVEN AND UNLABORED. TEL ON. BM X1 THIS PM. VOIDING WITHOUT DIFFICULTY.PROTONIX INFUSING AT 10ML/HR. SANDOSTATIN INFUSING AT 25ML/HR. NS INFUSING AT 50 ML/HR. SIT E HEALTHY X2. CALL LIGHT WITHIN REACH. BED LOCKED IN LOW POSITION.
--- NOTE | 2020-01-21 23:55 | NUR ---
DR CAMPBELL HERE TO SEE PT. NEW ORDERS RECEIVED FOR COLONOSCOPY.
[2020-01-22] VITALS (8 sets, daily range): BP systolic 117–143; BP diastolic 46–71
[2020-01-22] MEDS ORDERED: BISACODYL 5 MG TAB EC PO ONE ×2 (00:30)
[2020-01-22] MEDS: OCTREOTIDE ACETATE 500 MCG in SODIUM CHLORIDE 0.9% 250ML 249 ML IV SCH ×2 (02:30→17:16)
[2020-01-22] MEDS: PANTOPRAZOLE INJ 40 MG in SODIUM CHLORIDE 0.9% 50ML 50 ML IV SCH ×2 (04:00→08:41)
[2020-01-22] MEDS ORDERED: CITRATE OF MAGNESIA 300ML BOTTLE PO ONE ×2 (05:00→07:00)
[2020-01-22 05:10] LABS: HEMATOCRIT 25.9 % (38.2-49.6); HEMOGLOBIN 9.1 g/dL (14.0-18.0); MEAN CORPUSCULAR HEMOGLOBIN 35.3 pg (28-32); MEAN CORPUSCULAR HGB CONC 35.1 g/dL (31-35); MEAN CORPUSCULAR VOLUME 100.4 fL (81-99); PLATELET COUNT 56 x10e3/uL (140-360); RED BLOOD COUNT 2.58 x10e6/uL (4.3-5.7); RED CELL DISTRIBUTION WIDTH 14.9 % (11.7-14.4)
[2020-01-22 05:36] LABS: ALBUMIN 2.9 g/dL (3.5-5.0); ALBUMIN/GLOBULIN RATIO 1.3 (0.8-2.0); ANION GAP 10.5 mmol/L (8-16); CALCIUM 7.5 mg/dL (8.4-10.2); CREATININE, SERUM 1.24 mg/dL (0.72-1.25); POTASSIUM 4.5 mmol/L (3.5-5.1)
[2020-01-22] MEDS ORDERED: PANTOPRAZOLE 40 MG 10ML VIAL ONE ×3 (06:55→16:30)
[2020-01-22] MEDS ORDERED: SODIUM CHLORIDE 0.9% 50ML 50 ML ONE ×2 (06:55→16:30)
--- NOTE | 2020-01-22 07:00 | NUR ---
RECEIVED BEDSIDE SHIFT REPORT FROM OFF GOING NIGHT NURSE. PATIENT IN STABLE CONDITION, NO S/S OF DISTRESS NOTED. IV FLUIDS INFUSING, SITE ASYMPTOMATIC AND PATENT, TRANSPARENT DRESSING C/D/I. TELEMETRY APPLIED. BED LOCKED AND IN LOWEST POSITION, SIDE RAILS X 2, NONSKID SOCKS APPLIED. CALL LIGHT WITHIN REACH.
[2020-01-22 07:04] LABS: EOSINOPHILS % (MANUAL) 8 % (0-7); LYMPHOCYTES % (MANUAL) 15 % (19-48); MONOCYTES % (MANUAL) 2 % (3.4-9.0); NEUTROPHILS % (MANUAL) 75 % (40-74)
[2020-01-22 07:07] LABS: RBC MORPHOLOGY COMMENT ABNORMAL
[2020-01-22 07:09] LABS: ELLIPTOCYTE, RBC RARE; PLATELET ESTIMATE MARKEDLY DECREASED; PLATELET MORPHOLOGY COMMENT NORMAL; SCHISTOCYTES RARE
--- NOTE | 2020-01-22 08:35 | Progress Note ---
DATE: 01/21/2020 Medicine Progress Note Late entry note. SUBJECTIVE: The patient is seen evaluated approximately at 12:45 on January 21, 2020, at bedside with the nurse present. Discussed plan of care with nursing staff. The patient underwent EGD yesterday by GI. He is currently doing well. Reports no more black tarry stool. He is doing well. He is on a regular diet. PHYSICAL EXAMINATION: VITAL SIGNS: Temperature is 98.3, pulse 52, respiratory rate is 20, blood pressure is 106/45, and satting 96% on room air. He is doing well. GENERAL: In no acute distress, alert and oriented x3. Cooperative on examination. HEENT: Head Normocephalic and atraumatic. Eyes; pupils are equal, round, and reactive to light bilaterally. PULMONARY: Clear to auscultation bilaterally. No wheezing, rales, or rhonchi. No crackles appreciated. CARDIOVASCULAR: Positive S1 and S2. No murmurs, rubs, or gallops appreciated. ABDOMEN: Soft, nondistended, and nontender to palpation. Bowel sounds present. MUSCULOSKELETAL: Strength 5/5 throughout. No evidence of muscle deficits on examination. LABORATORY DATA: Labs show white count was 3.3, hemoglobin 8.5, hematocrit 25, and platelets of 56. Coagulation; PT 15, INR 1.1, and PTT 29.8. Chemistry; sodium was 140, potassium is 4.5, chloride 112, bicarb 21, anion gap 11, BUN 27, and creatinine 1.39. Urinalysis reveals negative. Hepatitis panel is pending. Coronavirus is not detected. MICROBIOLOGY: None. IMAGING STUDIES: None. IMPRESSION: 1. Black tarry stool concerning for underlying GI bleed, status post EGD performed on 01/20/2020: Grade 2 esophageal varices without active bleeding or stigmata of recent hemorrhage, small hiatal hernia, portal hypertensive gastropathy, mild, and nodular duodenal bulb biopsy. 2. Anemia. 3. Alcoholic liver cirrhosis. 4. Chronic alcohol abuse. 5. Type 2 diabetes. PLAN: At this time, the patient is on a regular diet. His hemoglobin seems to be very stable. We will continue with serial hemoglobin levels. I do not believe that the patient should be discharged today. Despite the patient is eager to being discharged including the is at bedside. They report that he is doing very well, but his hemoglobin seems to be being monitored very closely. He is not ready for discharge at this time. Continue with Protonix drip. Discuss with GI tomorrow about possible discharge tomorrow. Serial H and Hs. Monitor his glucose levels closely. Get repeat labs in the morning. Discussed the plan of care with nursing staff. The patient and his at bedside and they verbalized understanding. MD REYNA Mullins/JOHANNY /[id number]
[2020-01-22] MEDS ORDERED: METOPROLOL TARTRATE INJ 1 MG/ML VIAL ONE (12:21)
[2020-01-22] MEDS ORDERED: ESMOLOL HCL 100MG/10ML 10 MG/ML VIAL ONE (12:21)
[2020-01-22] MEDS ORDERED: GLYCOPYRROLATE INJ 0.2 MG/ML VIAL ONE (12:21)
--- NOTE | 2020-01-22 13:51 | NUR ---
PATIENT OFF THE UNIT @ 1351 TO THE OR VIA BED. PATIENT IN STABLE CONDITION, NO S/S OF DISTRESS NOTED. NO PAIN VOICED. PATIENT ABLE TO VOICE NEEDS. TELEMETRY APPLIED.
--- NOTE | 2020-01-22 16:18 | Progress Note ---
DATE: 01/22/2020 Medicine Progress Note SUBJECTIVE: The patient is doing well. He is undergoing a colonoscopy later today. No overnight events. PHYSICAL EXAMINATION: VITAL SIGNS: Temperature 98.3, pulse 50, respiratory rate is 18, and blood pressure 122/47, and pulse ox 97% on room air. GENERAL: Not in acute distress, alert and oriented x3. Cooperative on examination. HEENT: Head normocephalic, atraumatic. Eyes; pupils are equal, round, and reactive to light bilaterally. Extraocular movements are intact bilaterally. Throat, no evidence of any erythema or exudates in the posterior pharynx. Has poor dentition. NECK: Supple. Good range of motion. PULMONARY: Clear to auscultation bilaterally. No wheezing, no rales, no rhonchi, no crackles appreciated. CARDIOVASCULAR: Positive S1, S2. No murmurs, rubs, or gallops appreciated. ABDOMEN: Soft, nontender, nondistended to palpation. Bowel sounds are present. MUSCULOSKELETAL: Strength is 5/5 throughout. No evidence of any muscle deficits on examination. LABORATORY FINDINGS: Show white count 3.2, hemoglobin 9.1, hematocrit 25.9, and platelets of 56. Chemistry; reviewed, stable. MICROBIOLOGY: None. IMAGING STUDIES: Nothing. IMPRESSION: 1. Black tarry stool, concerning for underlying gastrointestinal bleed, status post EGD performed on 01/20/2020, showed grade 2 esophageal varices without bleeding or stigmata of recent hemorrhage, small hiatal hernia, portal hypertensive gastropathy, mild and nodular duodenal bulb biopsy. 2. Anemia. 3. Alcoholic liver cirrhosis. 4. Chronic alcohol abuse. 5. Type 2 diabetes. 6. Pancytopenia, secondary to alcoholic liver cirrhosis. PLAN: At this time, the patient is undergoing colonoscopy this afternoon. We will repeat labs in the morning. Replace electrolytes accordingly. If the patient tolerates diet well he can be discharged tomorrow morning. Will need to follow very closely with GI as well as Hematology. We will get repeat labs and monitor closely. MD REYNA Mullins/[facility] /[id number]
--- NOTE | 2020-01-22 16:35 | NUR ---
patient arrived back to the unit @ 1545 via stretcher. patient in stable condition, no s/s of distress noted. patient able to voice needs. notified telemetry about the patient running AFIB with RVR while off the unit in the OR. the afib with rvr was given to this nurse during report. from the or nurse.
[2020-01-22] MEDS: PANTOPRAZOL 40MG/SOD CHL 0.9% 50 ML IV SCH ×2 (17:16→23:12)
[2020-01-22] MEDS: SODIUM CHLORIDE 0.9% 1000ML 1,000 ML IV SCH ×2 (17:16→19:00)
--- NOTE | 2020-01-22 18:54 | NUR ---
Resumed care of patient. Patient awake and resting in bed, no s/s of distress at this time. Running afib in 90s-100s per telemetry. Awaiting eval by Dr. Durbin at this time per day nurse. Bed locked and in lowest position, side rails upx3, alarm on, call light placed within reach. Patient instructed to call for assistance if needed, verbalized understanding. All safety measures in place.
--- NOTE | 2020-01-22 19:30 | NUR ---
Dr. Durbin here to see patient. Per MD will order echo and continue to monitor patient overnight.
--- NOTE | 2020-01-22 19:44 | NUR ---
COMPLETED BEDSIDE SHIFT REPORT AND ROUNDING WITH ONCOMING NIGHT NURSE. PATIENT IN STABLE CONDITION, NO S/S OF DISTRESS NOTED. IV FLUIDS INFUSING, SITE ASYMPTOMATIC AND PATENT, TRANSPARENT DRESSING C/D/I. TELEMETRY APPLIED. BED LOCKED AND IN LOWEST POSITION, SIDE RAILS X 2, NONSKID SOCKS APPLIED. CALL LIGHT WITHIN REACH.
--- NOTE | 2020-01-22 20:48 | Consultation ---
DATE OF CONSULTATION: 01/22/2020 Cardiology Consultation CONSULTING PHYSICIAN: Jacinto Fuentes MD, Interventional Cardiology. REASON FOR CONSULTATION: Atrial fibrillation. HISTORY OF PRESENT ILLNESS: Mr. Starr is a 69-year-old man with a history of alcoholic liver cirrhosis, history of HCV infection, which he reports was treated at [facility] several years prior, type 2 diabetes, hypertension, and dyslipidemia, presents for black tarry stool, scheduled for GI evaluation. While plans underway for colonoscopy, the patient had atrial fibrillation with rapid ventricular response and reported symptoms of palpitations and chest discomfort, dyspnea at that time. He had previously undergone an EGD with grade 2 esophageal varices, small hiatal hernia, portal hypertensive gastropathy which was mild and nodules which were at the bulb. Currently, he is symptom free. Denies any chest discomfort or dyspnea. He denies any palpitations. Currently, he is in atrial fibrillation with rate in the 110 range. REVIEW OF SYSTEMS: A 12-system review negative except for as noted above. ALLERGIES: NO KNOWN DRUG ALLERGIES. PAST MEDICAL HISTORY: As per HPI, diabetes, hypertension, dyslipidemia, and end-stage liver disease. SOCIAL HISTORY: Tobacco abuse. Alcohol abuse. Denies drugs. FAMILY HISTORY: Noncontributory. PHYSICAL EXAMINATION: VITAL SIGNS: Temperature 97 degrees, heart rate 112, respiratory rate 16, blood pressure 110/64, O2 saturation 98% on room air. GENERAL: In no acute distress. Alert. NECK: JVD distended to lower third of neck. CHEST: Clear to auscultation bilaterally. CARDIOVASCULAR: Irregular rate and rhythm. Normal S1 and S2. No S3 or S4. Systolic murmur 1/6. No rubs. ABDOMEN: Soft. Bowel sounds positive. EXTREMITIES: With no edema, normothermic. CARDIOVASCULAR MEDICATIONS: Reviewed. Hydralazine 10 mg q.4 hours IV p.r.n., albuterol p.r.n., Protonix and octreotide drip. STUDIES: Reviewed. White blood cells 3.2, hemoglobin 9.1, platelets 56,000. INR 1.1, PT 15, PTT 29. Sodium 140, potassium 4.5, chloride 115, bicarbonate 19, BUN 22, creatinine 1.2, glucose 108, calcium 7.5, total bilirubin 0.5, AST 20, ALT 14, alkaline phosphatase 42, total protein 5.2, albumin 2.9, triglycerides 51, total cholesterol 88, LDL 44, HDL 34, positive occult blood test. EKG, atrial fibrillation with rapid ventricular response. Ultrasound with cirrhotic liver morphology, trace ascites, cholelithiasis. Chest x-ray with hyperinflated lungs with flattening of diaphragm, mild central vascular congestion. No definite focal consolidations. CT head, no acute intracranial abnormality. ASSESSMENT AND PLAN: A 69-year-old man presents with black tarry stools concerning for melena, anemia, esophageal varices, grade 2; alcoholic liver cirrhosis, prior history of HCV, tobacco abuse. Chest x-ray findings concerning for chronic obstructive pulmonary disease, diabetes type 2, dyslipidemia, hypertension, history of pancytopenia and atrial fibrillation new diagnosis. RECOMMEND: 1. Currently not a candidate for long-term anticoagulation for atrial fibrillation in light of GI bleed. 2. Optimize rate control strategy at metoprolol 25 mg every 12 hours. Obtain echocardiogram. We will follow closely with you. Please call with questions, . MD TOSHIA Kruger/JOHANNY /[id number]
[2020-01-22] MEDS: METOPROLOL SUCCINATE 25 MG TAB XL PO SCH (21:06)
--- NOTE | 2020-01-22 23:12 | NUR ---
Patient's cousin of the same name (Clarence) called to request information about patient. Confirmed with patient that he only wants to share medical information with his girlfriend Cayden "Francisca Whelan" and niece Matilda.
--- NOTE | 2020-01-22 23:56 | NUR ---
Per telemetry patient current running SR in 70s.
[2020-01-23] VITALS (8 sets, daily range): BP systolic 119–143; BP diastolic 45–60
--- NOTE | 2020-01-23 00:47 | NUR ---
Dr. Tevin Nix on unit. Per MD give patient 20 mg Dulcolax now and repeat dose at 0500. Encourage patient to drink lots of water and then make patient NPO at 0700. Order CBC in AM and call Dr. Nix with results.
[2020-01-23] MEDS ORDERED: BISACODYL 5 MG TAB EC PO ONE ×2 (01:00→05:00)
--- NOTE | 2020-01-23 02:35 | NUR ---
Per telemetry patient running sinus jana @ 58. Patient resting quietly in bed having just returned from restroom.
[2020-01-23] MEDS: OCTREOTIDE ACETATE 500 MCG in SODIUM CHLORIDE 0.9% 250ML 249 ML IV SCH ×2 (03:09→13:48)
[2020-01-23] MEDS: PANTOPRAZOL 40MG/SOD CHL 0.9% 50 ML IV SCH ×5 (04:11→22:53)
[2020-01-23] MEDS: SODIUM CHLORIDE 0.9% 1000ML 1,000 ML IV SCH (04:18)
[2020-01-23 06:00] LABS: BASOPHILS # (AUTO) 0.1 (0.0-0.1); BASOPHILS % 1.1 % (0.0-1.0); EOSINOPHILS # (AUTO) 0.6 (0.0-0.4); EOSINOPHILS % 13.3 % (0.0-6.0); HEMATOCRIT 29.7 % (38.2-49.6); HEMOGLOBIN 9.6 g/dL (14.0-18.0); LYMPHOCYTES # (AUTO) 0.6 (1.0-3.2); LYMPHOCYTES % 12.7 % (18.0-39.1); MEAN CORPUSCULAR HEMOGLOBIN 33.9 pg (28-32); MEAN CORPUSCULAR HGB CONC 32.3 g/dL (31-35); MEAN CORPUSCULAR VOLUME 104.9 fL (81-99); MONOCYTES # (AUTO) 0.3 (0.2-0.8); NEUTROPHILS % 65.7 % (38.7-80.0); PLATELET COUNT 66 x10e3/uL (140-360); RED BLOOD COUNT 2.83 x10e6/uL (4.3-5.7); RED CELL DISTRIBUTION WIDTH 15.8 % (11.7-14.4)
[2020-01-23 06:26] LABS: ALANINE AMINOTRANSFERASE 13 IU/L (0-55); ALBUMIN/GLOBULIN RATIO 1.3 (0.8-2.0); ALKALINE PHOSPHATASE 44 IU/L (40-150); ANION GAP 11.4 mmol/L (8-16); BLOOD UREA NITROGEN 15 mg/dL (7-26); BUN/CREATININE RATIO 13 (6-25); CALCIUM 7.5 mg/dL (8.4-10.2); CARBON DIOXIDE 13 mmol/L (22-29); CHLORIDE 117 mmol/L (98-107); CREATININE, SERUM 1.13 mg/dL (0.72-1.25); EST GLOMERULAR FILTRATION RATE > 60 ML/MIN (60-); GLUCOSE 88 mg/dL (74-118); POTASSIUM 4.4 mmol/L (3.5-5.1); SODIUM 137 mmol/L (136-145)
[2020-01-23] MEDS: METOPROLOL SUCCINATE 25 MG TAB XL PO SCH ×2 (08:00→20:00)
[2020-01-23] MEDS ORDERED: LIDOCAINE HCL 2% LOCAL INJ 5 ML SDV VIAL INJ ONE (12:23)
[2020-01-23] MEDS ORDERED: PROPOFOL IV EMULSION 10 MG/ML 20 ML VIAL ONE (12:23)
--- NOTE | 2020-01-23 13:07 | Progress Note ---
DATE: 01/23/2020 Medicine Progress Note SUBJECTIVE: The patient is doing well today. He was in the process of getting a colonoscopy yesterday, but developed atrial fibrillation with rapid ventricular response in which Cardiology was consulted. He is not a candidate for anticoagulation due to the low platelets and GI bleed. His heart rate is much improved. He is getting a colonoscopy later today. PHYSICAL EXAMINATION: VITAL SIGNS: Temperature is 98.3, pulse 54, respiratory rate is 20, blood pressure 137/50, and pulse ox 96% on room air. GENERAL: Not in acute distress. Alert and oriented x3. He is cooperative on examination. HEENT: Head; normocephalic, atraumatic. Eyes; pupils are equal, round, and reactive to light bilaterally. Extraocular movements intact bilaterally. NECK: Supple. Good range of motion. PULMONARY: Clear to auscultation bilaterally. No wheezing, no rales, no rhonchi, no crackles appreciated. CARDIOVASCULAR: Positive S1 and S2. No murmurs, rubs, or gallops appreciated. ABDOMEN: Soft, nondistended, and nontender to palpation. Bowel sounds present. MUSCULOSKELETAL: Strength is 5/5 throughout. LABORATORY FINDINGS: Show white count 4.5, hemoglobin 9.6, hematocrit is 29.7, and platelets was 66. Chemistry reviewed; sodium 137, potassium 4.4, chloride 117, bicarbonate was 13, BUN 15, creatinine is 1.1, and calcium is 7.5. Urinalysis negative. IMPRESSION: 1. Black tarry stool, concerning for underlying gastrointestinal bleed, status post EGD performed on 01/20/2020, showed grade 2 esophageal varices without bleeding or stigmata of any recent hemorrhage, small hiatal hernia, portal hypertensive gastropathy, and mild nodular duodenum bulb biopsy performed. 2. Anemia. 3. Alcoholic liver cirrhosis. 4. Chronic alcohol abuse. 5. Type 2 diabetes. 6. Pancytopenia. 7. Atrial fibrillation with rapid ventricular response. PLAN: At this time, the patient was in the process to have a colonoscopy yesterday, but developed atrial fibrillation with RVR, in which the procedure was canceled. He was given some stool softeners as well today. Cardiology was consulted. Medications were given accordingly for his heart rate. He is not a candidate for anticoagulation due to GI bleeding as well as low platelets. At this time, continue with rate control medications and Cardiology followup with him. As for his acidosis, this is all likely secondary to saline as well as diarrhea, which I will go ahead and discontinue the IV fluids. He is otherwise stable, afebrile, doing well. White count is normal. He is scheduled for colonoscopy later today by GI. Hold anticoagulation due to GI bleed issues. MD REYNA Mullins/JOHANNY /[id number]
--- NOTE | 2020-01-23 14:00 | NUR ---
PATIENT OFF THE UNIT @ 1400 TO THE OR VIA WHEELCHAIR. PATIENT LEFT IN STABLE CONDITION, NO S/S OF DISTRESS NOTED. VITALS SIGNS STABLE. TELEMETRY CALLED TO LET KNOW THAT THE PATIENT IS OFF THE UNIT.
--- NOTE | 2020-01-23 16:01 | NUR ---
PATIENT ARRIVED BACK ON THE UNIT @ 1558 VIA STRETCHER. PATIENT IN STABLE CONDITION, NO S/S OF DISTRESS NOTED. TELEMETRY APPLIED.
[2020-01-23] MEDS: SODIUM BICARBONATE 650 MG TAB PO SCH (17:10)
--- NOTE | 2020-01-23 18:23 | Operative Report ---
DATE OF PROCEDURE: 01/23/2020 SURGEON: Freedom Nix MD PROCEDURE: Colonoscopy with polypectomy. INDICATIONS FOR COLONOSCOPY: Anemia. MEDICATIONS: The patient was done under MAC, please see anesthesiologist's note. PROCEDURE IN DETAIL: With the patient in the left lateral decubitus position, the flexible fiberoptic Olympus colonoscope was inserted into the rectum and advanced all the way to the cecum. Prep overall was suboptimal with a retained fecal material in the colon. Approximately 1 cm sessile polyp was removed per hot snare polypectomy from the cecum. The scope was then withdrawn slowly, whatever was visualized the mucosa overlying the ascending, transverse, descending, sigmoid, and rectum grossly appeared to be within normal limits. The scope was then retroflexed into the distal rectum and small internal hemorrhoids were noted, none of which was actively bleeding. The scope was then straightened out, it was subsequently withdrawn, and the patient tolerated the procedure well. IMPRESSION: 1. Suboptimal prep. 2. Cecal polyp approximately 1 cm in size, hot snared. 3. Internal hemorrhoids, none actively bleeding. PLAN: Follow up histology. The patient might benefit from a followup colonoscopy in 3 years. Freedom Nix MD [facility] [place] /[id number] cc: Kavita Montano MD
--- NOTE | 2020-01-23 19:00 | NUR ---
Resumed care of patient. Patient resting quietly in bed, respirations even and unlabored on room air, running SB in 50s per telemetry, no s/s of distress at this time. All safety measures in place.
--- NOTE | 2020-01-23 19:23 | Progress Note ---
DATE: 01/23/2020 Cardiology Progress Note SUBJECTIVE: Mr. Starr has no new complaints today. OBJECTIVE: VITAL SIGNS: Temperature 98.3, heart rate 54, blood pressure 137/50, respiratory rate 20, O2 saturation 96%. GENERAL: No acute distress. Alert. NECK: No JVD. CHEST: Clear to auscultation. CARDIOVASCULAR: Irregular rate and rhythm, controlled ventricular response. Normal S1 and S2. No S3 or S4. Systolic murmur 1/6 in the left lower sternal border. ABDOMEN: Soft. Bowel sounds positive. EXTREMITIES: No edema. CARDIOVASCULAR MEDICATIONS: Reviewed. Metoprolol succinate 25 mg every 12 hours, hydralazine 10 q.4 hours, Protonix, and octreotide. STUDIES: Reviewed. Sodium 137, potassium 4.4, chloride 117, bicarbonate 13, BUN 15, creatinine 1.1, glucose 88. White blood cells 4.5, hemoglobin 9.6, and platelets 66. INR 1.1, PT 15, PTT 29. AST 18, ALT 13, alkaline phosphatase 44. ASSESSMENT: 1. A 69-year-old man presents with gastrointestinal bleed, undergoing evaluation by Gastroenterology. 2. Paroxysmal atrial fibrillation. 3. Liver cirrhosis. 4. Pancytopenia. RECOMMEND: 1. Preserved ventricular systolic function observed on echocardiogram. 2. Nonvalvular atrial fibrillation, adequately rate controlled with current beta-blockade therapy. 3. [id number] risk for adverse cardiovascular outcomes with noncardiac evaluation (GI). 4. Not currently a candidate for anticoagulation given active bleed. Please monitor H and H. Jacinto Fuentes MD [facility] /[id number]
[2020-01-24] VITALS: BP 131/56
[2020-01-24 04:00] VITALS: BP 113/48
[2020-01-24] MEDS: PANTOPRAZOL 40MG/SOD CHL 0.9% 50 ML IV SCH ×3 (04:02→14:58)
[2020-01-24 05:20] LABS: BASOPHILS % 0.7 % (0.0-1.0); EOSINOPHILS # (AUTO) 0.5 (0.0-0.4); EOSINOPHILS % 11.8 % (0.0-6.0); HEMATOCRIT 25.1 % (38.2-49.6); HEMOGLOBIN 8.9 g/dL (14.0-18.0); LYMPHOCYTES # (AUTO) 0.6 (1.0-3.2); LYMPHOCYTES % 14.1 % (18.0-39.1); MEAN CORPUSCULAR HEMOGLOBIN 34.9 pg (28-32); MEAN CORPUSCULAR HGB CONC 35.5 g/dL (31-35); MEAN CORPUSCULAR VOLUME 98.4 fL (81-99); MONOCYTES # (AUTO) 0.4 (0.2-0.8); MONOCYTES % 8.8 % (4.4-11.3); NEUTROPHILS # (AUTO) 2.8 (2.1-6.9); NEUTROPHILS % 64.4 % (38.7-80.0); PLATELET COUNT 70 x10e3/uL (140-360); RED BLOOD COUNT 2.55 x10e6/uL (4.3-5.7); RED CELL DISTRIBUTION WIDTH 15.3 % (11.7-14.4)
[2020-01-24 05:45] LABS: ALANINE AMINOTRANSFERASE 11 IU/L (0-55); ALBUMIN 2.6 g/dL (3.5-5.0); ALBUMIN/GLOBULIN RATIO 1.2 (0.8-2.0); ALKALINE PHOSPHATASE 45 IU/L (40-150); ANION GAP 11.1 mmol/L (8-16); BLOOD UREA NITROGEN 15 mg/dL (7-26); BUN/CREATININE RATIO 13 (6-25); CALCIUM 7.2 mg/dL (8.4-10.2); CARBON DIOXIDE 15 mmol/L (22-29); CHLORIDE 116 mmol/L (98-107); CREATININE, SERUM 1.19 mg/dL (0.72-1.25); EST GLOMERULAR FILTRATION RATE > 60 ML/MIN (60-); GLUCOSE 83 mg/dL (74-118); POTASSIUM 4.1 mmol/L (3.5-5.1); SODIUM 138 mmol/L (136-145)
[2020-01-24] MEDS: METOPROLOL SUCCINATE 25 MG TAB XL PO SCH (08:00)
[2020-01-24 08:17] VITALS: BP 139/58
[2020-01-24] MEDS: SODIUM BICARBONATE 650 MG TAB PO SCH (08:20)
[2020-01-24 09:00] VITALS: BP 139/58
[2020-01-24 11:38] VITALS: BP 135/52
[2020-01-24] MEDS ORDERED: SODIUM BICARBONATE 8.4% 50 ML VIAL IV STA (13:21)
--- NOTE | 2020-01-24 13:56 | NUR ---
IMM letter delivered and explained to pt. He verbalized understanding, states ready to go home. Copy to pt. Signed copy placed in chart.
[2020-01-24] MEDS ORDERED: SODIUM BICARBONATE 8.4% INJ 50 ML SYR IV ONE (14:00)
--- NOTE | 2020-01-24 14:24 | NUR ---
car distributor visited the pt and . pt says smiles everyday and I feel great and ready to get out from hospital, car distributor validated feeling and provided conversation , he tells car distributor his experience of care and empathy of the staff and he he enjoyed the stay and appreciated all the staff . car distributor provided prayers and blessings chaplain Sangeeta
[2020-01-24 16:22] VITALS: BP 120/43
[2020-01-24 17:00] LABS: ANION GAP 9.9 mmol/L (8-16); BLOOD UREA NITROGEN 15 mg/dL (7-26); BUN/CREATININE RATIO 13 (6-25); CALCIUM 7.3 mg/dL (8.4-10.2); CARBON DIOXIDE 19 mmol/L (22-29); CHLORIDE 115 mmol/L (98-107); CREATININE, SERUM 1.12 mg/dL (0.72-1.25); EST GLOMERULAR FILTRATION RATE > 60 ML/MIN (60-); GLUCOSE 99 mg/dL (74-118); POTASSIUM 3.9 mmol/L (3.5-5.1); SODIUM 140 mmol/L (136-145)
[2020-01-24] MEDS ORDERED: TOPROL XL25 MG PO (17:15)
[2020-01-24] MEDS ORDERED: PANTOPRAZOLE SO40 MG PO (17:16)
--- NOTE | 2020-01-25 16:57 | Discharge Summary ---
FINAL DISCHARGE DIAGNOSES: 1. Black tarry stool with underlying anemia, status post EGD performed on 01/20/2020, showed grade 2 esophageal varices without bleeding or stigmata of any recent hemorrhage, small hiatal hernia, portal hypertensive gastropathy, and mild nodular duodenal bulb. 2. Anemia. 3. Alcoholic liver cirrhosis. 4. Chronic alcohol abuse. 5. Type 2 diabetes. 6. Pancytopenia secondary to alcohol abuse. 7. Atrial fibrillation with RVR - resolved. 8. Status post colonoscopy performed on 01/23/2020: Cecal polyp approximately 1 cm in size was noted. Internal hemorrhoids. No active bleeding noted. Suboptimal prep. CONSULTANTS: GI and Cardiology. PHYSICAL EXAMINATION: VITAL SIGNS: Temperature is 97.4, pulse 52, respiratory rate is 20, blood pressure is 120/43, pulse ox 96% on room air. LABORATORY DATA: Labs show white count was 4.3, hemoglobin 8.8, hematocrit 25, platelets of 70. Coagulation, PT 15, INR 1.1, PTT 29.8. Chemistry, sodium 140, potassium 3.9, chloride 115, bicarb 19, anion gap of 9.9, BUN 15, creatinine 1.1, glucose is 99, calcium is 7.3. Iron saturation was 29%. LFTs within normal range. Albumin was 2.6. LDL 44. Troponins were negative. Urinalysis negative. Stool occult was positive for blood. Serologies, hepatitis panel shows hepatitis C antibody positive. Coronavirus not detected. IMAGING STUDIES: CT brain, no acute intracranial abnormality. Chest x-ray, hyperinflated lungs with flattening of the diaphragm suggestive of chronic obstructive pulmonary disease. Liver ultrasound, cirrhotic liver morphology. Trace ascites is noted. Cholelithiasis. HOSPITAL COURSE: This is a 69-year-old male, chronic alcoholic, also a smoker who presented to the ED with complaints of black tarry stool, found to be anemic and pancytopenia prompting several consultations. GI was consulted in which the patient underwent status post EGD on 01/20/2020, that showed a grade 2 esophageal varices without bleeding or stigmata or any recent hemorrhage, small hiatal hernia, as well as portal hypertensive gastropathy with a mild nodular duodenal bulb. He also underwent a colonoscopy on 01/22/2020, that showed just a cecal polyp, but has a suboptimal prep and no evidence of any bleeding. He also had internal hemorrhoids with no bleeding. The patient required some Protonix drip as well as Octreotide drip in the hospital stay. He did maintain stable in terms of hemoglobin throughout the hospital course. His platelets were low. I did consult with Hematology/Oncology and his pancytopenia is likely secondary to alcoholic liver cirrhosis as well as hepatitis liver cirrhosis. He will follow up with Hematology as an outpatient. I have also discussed this case with GI and the patient will be discharged home from GI standpoint with followup in his office for biopsy results. The patient also developed atrial fibrillation with RVR, for which Cardiology was consulted. The patient's heart rate was controlled and was initiated on beta-blockade. He is not a candidate for anticoagulation due to underlying anemia, thrombocytopenia and concern for GI bleed. Cardiology cleared the patient for discharge on metoprolol twice a day. The patient was seen and evaluated on the day of discharge. He was doing well with no complaints. Tolerating diet well with no other issues. He has been cleared for discharge by all consultants. On the day of discharge, vital signs were stable. Labs reviewed and stable. The patient is seen and evaluated and examined thoroughly on the day of discharge. No other complaints. The patient verbalized understanding and agrees to plan of care and to follow up as an outpatient with primary care physician in 1 week, GI and Cardiology in 2 weeks in relation to the biopsy results and further evaluation management and Hematology/Oncology in about 2-3 weeks' time. MEDICATIONS: See med reconciliation form. DISPOSITION: Home. CONDITION: Stable. DIET: Heart healthy. In the event of any worsening symptoms, the patient is about to come back to the ED for further evaluation. Discharge summary took greater than 35 minutes. Once again, I spoke with Cardiology and GI about the baby aspirin he was taking at home. They agreed that the patient can restart the baby aspirin in approximately 1 week's time. He is not a candidate for any anticoagulation therapy at this time. MD REYNA Mullins/MODL /[id number]
== END 2020-01-24 17:44 | disposition home or self-care (01) | DRG 432 ==
LOC: ER 19:13 → ERHOLD 21:05 → MED/SURG 22:21
PROVIDERS: ADMIT Internal Medicine; ATTEND Internal Medicine
PROC: 0DB78ZX Excision of Stomach, Pylorus, Via Natural or Artificial Opening Endoscopic, Diagnostic (ICD-10-PCS; 2020-01-20)
PROC: 30233R1 Transfusion of Nonautologous Platelets into Peripheral Vein, Percutaneous Approach (ICD-10-PCS; 2020-01-20)
PROC: 0DB98ZX Excision of Duodenum, Via Natural or Artificial Opening Endoscopic, Diagnostic (ICD-10-PCS; principal; 2020-01-20 17:00)
PROC: 0DDH8ZX Extraction of Cecum, Via Natural or Artificial Opening Endoscopic, Diagnostic (ICD-10-PCS; 2020-01-23)
DX: K70.31 Alcoholic cirrhosis of liver with ascites (principal); I85.11 Secondary esophageal varices with bleeding; K76.6 Portal hypertension; D61.818 Other pancytopenia; I85.10 Secondary esophageal varices without bleeding; E11.9 Type 2 diabetes mellitus without complications; D64.9 Anemia, unspecified; K44.9 Diaphragmatic hernia without obstruction or gangrene; K31.9 Disease of stomach and duodenum, unspecified; Z79.01 Long term (current) use of anticoagulants; E78.5 Hyperlipidemia, unspecified; Z86.19 Personal history of other infectious and parasitic diseases; F17.200 Nicotine dependence, unspecified, uncomplicated; J44.9 Chronic obstructive pulmonary disease, unspecified; B19.20 Unspecified viral hepatitis C without hepatic coma; F10.20 Alcohol dependence, uncomplicated; I48.0 Paroxysmal atrial fibrillation; K31.89 Other diseases of stomach and duodenum; K64.8 Other hemorrhoids
CPT/HCPCS: 36415; 43239; 45378; 45385; 70450; 71045; 76705; 80048; 80053; 80061; 81001; 82270; 82550; 82553; 82607; 82728; 82746; 82948; 83010; 83036; 83540; 83615; 83735; 84100; 84466; 84484; 85007; 85014; 85018; 85025; 85027; 85045; 85610; 85730; 86850; 86900; 87521; 88305; 88312; 93005; 93306; 94640; 99284; J2001; J2353; J2354; J7030; J7050; P9034; U0002

== ENCOUNTER 2020-03-24 11:03 | Emergency (ER) | payer MEDICARE ==
[~2020-03-24] VITALS: Ht 172.7 cm; Wt 58.1 kg
[~2020-03-24 11:03] MED LIST: ANORO ELLIPTA1 EACH INH; ASPIRIN EC81 MG PO; CALCIUM 600 +1 EACH PO; LASIX20 MG PO; METFORMIN HCL500 MG PO; MULTI-VITAMIN1 EACH PO; NADOLOL20 MG PO; PANTOPRAZOLE SO40 MG PO; PRAVACHOL40 MG PO; TOPROL XL25 MG PO
[2020-03-24 13:02] VITALS: BP 150/59
== END 2020-03-24 13:03 | disposition home or self-care (01) ==
LOC: ER 11:31
DX: S00.83XA Contusion of other part of head, initial encounter (principal); S00.412A Abrasion of left ear, initial encounter; M25.552 Pain in left hip; W01.190A Fall on same level from slipping, tripping and stumbling with subsequent striking against furniture, initial encounter; Y93.01 Activity, walking, marching and hiking; Y92.531 Health care provider office as the place of occurrence of the external cause; I10 Essential (primary) hypertension; E11.9 Type 2 diabetes mellitus without complications; J44.9 Chronic obstructive pulmonary disease, unspecified; K76.9 Liver disease, unspecified; F17.210 Nicotine dependence, cigarettes, uncomplicated
CPT/HCPCS: 70450; 99283

== ENCOUNTER → 2020-04-08 | Outpatient (CLI) | payer MEDICARE | LOC: RAD 09:51 | PROVIDERS: ATTEND Internal Medicine Medical Oncology | DX: R60.9 Edema, unspecified (principal); I82.409 Acute embolism and thrombosis of unspecified deep veins of unspecified lower extremity | CPT/HCPCS: 93970 ==

== ENCOUNTER → 2020-04-15 | Outpatient (CLI) | payer MEDICARE | LOC: RAD 13:19 | PROVIDERS: ATTEND Family Medicine | DX: M25.552 Pain in left hip (principal) | CPT/HCPCS: 72190 ==

== ENCOUNTER 2020-07-02 12:56 | Emergency (ER) | payer MEDICARE ==
[~2020-07-02] VITALS: Ht 172.7 cm; Wt 58.1 kg
[2020-07-02] MEDS ORDERED: MORPHINE SULFATE INJ 4 MG/ML INJ 1ML IM STA (15:26)
[2020-07-02 15:53] VITALS: BP 133/81
== END 2020-07-02 15:55 | disposition home or self-care (01) ==
LOC: ER 14:28
DX: S72.001A Fracture of unspecified part of neck of right femur, initial encounter for closed fracture (principal); W18.30XA Fall on same level, unspecified, initial encounter; Y93.01 Activity, walking, marching and hiking; Y92.008 Other place in unspecified non-institutional (private) residence as the place of occurrence of the external cause; I10 Essential (primary) hypertension; E11.9 Type 2 diabetes mellitus without complications; J44.9 Chronic obstructive pulmonary disease, unspecified; K76.9 Liver disease, unspecified; F17.210 Nicotine dependence, cigarettes, uncomplicated
CPT/HCPCS: 73502; 99284; J2270

== ENCOUNTER → 2020-09-21 | Outpatient (CLI) | payer MEDICARE ==
[2020-09-18 11:16] LABS: BASOPHILS % 0.7 % (0.0-1.0); EOSINOPHILS # (AUTO) 0.1 (0.0-0.4); EOSINOPHILS % 4.2 % (0.0-6.0); HEMATOCRIT 32.2 % (38.2-49.6); HEMOGLOBIN 10.3 g/dL (14.0-18.0); LYMPHOCYTES # (AUTO) 0.4 (1.0-3.2); MEAN CORPUSCULAR HEMOGLOBIN 31.5 pg (28-32); MEAN CORPUSCULAR VOLUME 98.5 fL (81-99); MONOCYTES # (AUTO) 0.1 (0.2-0.8); MONOCYTES % 4.2 % (4.4-11.3); NEUTROPHILS # (AUTO) 2.2 (2.1-6.9); NEUTROPHILS % 77.5 % (38.7-80.0); PLATELET COUNT 62 x10e3/uL (140-360); RED BLOOD COUNT 3.27 x10e6/uL (4.3-5.7); RED CELL DISTRIBUTION WIDTH 14.4 % (11.7-14.4)
[2020-09-18 11:40] LABS: INR 1.17; PARTIAL THROMBOPLASTIN TIME 28.6 seconds (23.8-35.5); PROTHROMBIN TIME 15.6 seconds (11.9-14.5)
[2020-09-18 11:49] LABS: ALBUMIN 3.4 g/dL (3.5-5.0); ALBUMIN/GLOBULIN RATIO 1.1 (0.8-2.0); ANION GAP 16.7 mmol/L (8-16); CALCIUM 8.6 mg/dL (8.4-10.2); CREATININE, SERUM 1.25 mg/dL (0.72-1.25); POTASSIUM 3.7 mmol/L (3.5-5.1)
[~2020-09-21] MED LIST changes: +CLOPIDOGREL75 MG PO; +FERROUS SULFAT324 MG PO; +FLUTICASONE PRO; +HYDROCODON-ACE1 EA12 PO; +LACTULOSE20 GM/30 M PO; +POTASSIUM CHLO10 ME1 PO; +PRAMIPEXOLE DIHY1 MG PO; +ROPIVACAINE 246.25 MG, EPINEPHRINE HCL 1:1000 1ML 0.5 MG, CLONIDINE HCL 0.08 MG, KETORO... INJ ONE; +SPIRONOLACTONE25 MG PO; +TRAZODONE HCL150 MG PO; +TRELEGY ELLIPT1 EACH INH; +VITAMIN D325 MCG PO; +XIFAXAN550 MG PO
== END ==
LOC: EDSTATUS 08:00 → OR 09:37
PROVIDERS: ATTEND Specialist
DX: M16.11 Unilateral primary osteoarthritis, right hip (principal); Z01.810 Encounter for preprocedural cardiovascular examination; Z01.812 Encounter for preprocedural laboratory examination; U07.1 COVID-19; Z53.8 Procedure and treatment not carried out for other reasons
CPT/HCPCS: 36415; 71046; 80053; 85025; 85610; 85730; 86850; 86900; 86920; 93005; U0002; J0171; J1885; J2795

== ENCOUNTER 2020-10-12 08:51 | Observation (INO) | payer MEDICARE ==
[~2020-10-12] VITALS: Ht 172.7 cm; Wt 58.1 kg
[2020-10-12] MEDS ORDERED: CELECOXIB 200 MG CAP ONE (09:56)
[2020-10-12] MEDS ORDERED: GABAPENTIN 300 MG CAP ONE (09:56)
[2020-10-12] MEDS ORDERED: DEXAMETHASONE SOD PHOS 10 MG/1 ML VIAL ONE (09:56)
[2020-10-12] MEDS ORDERED: SODIUM CHLORIDE 0.9% 50ML 100 ML ONE (09:57)
[2020-10-12] MEDS ORDERED: HYDROCHLOROTH12.5 MG PO (10:00)
[2020-10-12] MEDS ORDERED: SODIUM CHLORIDE 0.9% 500ML 500 ML ONE (11:40)
[2020-10-12] MEDS ORDERED: Vancomycin IV 1,000 MG ONE (11:40)
[2020-10-12] MEDS ORDERED: TRANEXAMIC ACID 1,000 MG/10 ML ML ONE (11:40)
[2020-10-12] MEDS ORDERED: BUPIVACAINE 7.5MG/ML /DEXTROSE 82.5MG/ML 2 ML AMP INJ ONE (11:59)
[2020-10-12] MEDS ORDERED: DOCUSATE SODIUM 100 MG CAP PO PRN (14:15)
[2020-10-12] MEDS ORDERED: ONDANSETRON HCL INJ 2MG/ML 2ML 2 MG/ML VIAL IV PRN (14:15)
[2020-10-12] MEDS ORDERED: KETOROLAC TROMETHAMINE 30 MG/ML VIAL IV PRN (14:15)
[2020-10-12] MEDS ORDERED: SODIUM CHLORIDE 0.9% 1000ML 1,000 ML IV SCH (14:15)
[2020-10-12] MEDS ORDERED: DIPHENHYDRAMINE HCL INJ 50 MG/ML VIAL IV PRN (14:15)
[2020-10-12] MEDS ORDERED: ACETAMINOPHEN 650 MG SUPP PR PRN (14:15)
[2020-10-12] MEDS ORDERED: HYDROCODONE/APAP 7.5MG-325MG 1 EA TAB PO PRN (14:15)
[2020-10-12] MEDS ORDERED: HYDROCODONE/APAP 5MG-325MG TAB PO PRN (14:15)
[2020-10-12 15:46] VITALS: BP 147/54
[2020-10-12 15:48] VITALS: BP 147/54
[2020-10-12 15:52] VITALS: BP 147/54
[2020-10-12] MEDS ORDERED: ACETAMINOPHEN 1000 MG/100 ML IV PRN (17:00)
[2020-10-12] MEDS ORDERED: ASPIRIN 325 MG TAB PO SCH (17:00)
[2020-10-12] MEDS ORDERED: CELECOXIB 100 MG CAP PO SCH (17:00)
[2020-10-12] MEDS ORDERED: ONDANSETRON HCL INJ 2MG/ML 2ML 2 MG/ML VIAL ONE (19:21)
[2020-10-12] MEDS ORDERED: PROPOFOL IV EMULSION 10 MG/ML 20 ML VIAL ONE (19:21)
[2020-10-12] MEDS ORDERED: POVIDONE IODINE 0.05% 0.05 % ML PO ONE (19:21)
[2020-10-12] MEDS ORDERED: LIDOCAINE HCL 2% LOCAL INJ 5 ML SDV VIAL INJ ONE (19:21)
[2020-10-12] MEDS ORDERED: ROCURONIUM BROMIDE 10 MG/ML 5ML VIAL IV ONE (19:21)
[2020-10-12] MEDS ORDERED: Cefazolin 1 GM in SODIUM CHLORIDE 0.9% 50ML 50 ML IV SCH (20:00)
[2020-10-12] MEDS ORDERED: ZOLPIDEM TARTRATE 5 MG TAB PO PRN (21:00)
== END 2020-10-12 19:00 | disposition home or self-care (01) ==
LOC: OR 08:51 → PACU V 14:39 → IMCU 15:12
PROVIDERS: ADMIT Specialist; ATTEND Specialist
DX: S72.011G Unspecified intracapsular fracture of right femur, subsequent encounter for closed fracture with delayed healing (principal); I10 Essential (primary) hypertension; E78.5 Hyperlipidemia, unspecified; I25.2 Old myocardial infarction; I48.91 Unspecified atrial fibrillation; Z79.01 Long term (current) use of anticoagulants; Z86.16 Personal history of COVID-19
CPT/HCPCS: 27130; 72170; 86850; 86900; 86920; 97110; 97116; 97162; 97530; C1713; C1776 ×3; G0378; J0171; J0690; J1100; J1885; J2001; J2405; J2704; J2795; J3370; J7040

== ENCOUNTER 2022-05-29 15:15 | Emergency (ER) | payer MEDICARE ==
[~2022-05-29] VITALS: Ht 172.7 cm; Wt 58.1 kg
[~2022-05-29 15:15] MED LIST changes: +HYDROCHLOROTH12.5 MG PO; -ROPIVACAINE 246.25 MG, EPINEPHRINE HCL 1:1000 1ML 0.5 MG, CLONIDINE HCL 0.08 MG, KETORO... INJ ONE
[2022-05-29 16:16] LABS: BASOPHILS % 0.6 % (0.0-1.0); EOSINOPHILS # (AUTO) 0.3 (0.0-0.4); EOSINOPHILS % 3.9 % (0.0-6.0); HEMATOCRIT 41.8 % (38.2-49.6); HEMOGLOBIN 13.8 g/dL (14.0-18.0); LYMPHOCYTES # (AUTO) 0.9 (1.0-3.2); LYMPHOCYTES % 13.1 % (18.0-39.1); MEAN CORPUSCULAR HEMOGLOBIN 30.7 pg (28-32); MEAN CORPUSCULAR VOLUME 92.9 fL (81-99); MONOCYTES # (AUTO) 0.4 (0.2-0.8); MONOCYTES % 5.6 % (4.4-11.3); NEUTROPHILS # (AUTO) 5.1 (2.1-6.9); NEUTROPHILS % 76.5 % (38.7-80.0); PLATELET COUNT 106 x10e3/uL (140-360); RED CELL DISTRIBUTION WIDTH 14.8 % (11.7-14.4)
[2022-05-29 16:39] LABS: INR 1.03
[2022-05-29 16:40] LABS: PARTIAL THROMBOPLASTIN TIME 31.1 seconds (23.8-35.5)
[2022-05-29 16:43] LABS: CREATINE KINASE MB < 1.00 ng/mL (0-4.3)
[2022-05-29 16:51] LABS: ALANINE AMINOTRANSFERASE 20 IU/L (0-55); ALBUMIN 3.9 g/dL (3.5-5.0); ALBUMIN/GLOBULIN RATIO 1.1 (0.8-2.0); ALKALINE PHOSPHATASE 84 IU/L (40-150); BLOOD UREA NITROGEN 29 mg/dL (7-26); BUN/CREATININE RATIO 17 (6-25); CALCIUM 9.7 mg/dL (8.4-10.2); CARBON DIOXIDE 20 mmol/L (22-29); CHLORIDE 110 mmol/L (98-107); CREATINE KINASE 33 IU/L (30-200); CREATININE, SERUM 1.66 mg/dL (0.72-1.25); GLUCOSE 153 mg/dL (74-118); LIPASE 40 U/L (8-78); SODIUM 144 mmol/L (136-145)
[2022-05-29] MEDS ORDERED: SODIUM CHLORIDE 0.9% 500ML 500 ML IV ONE (17:45)
[2022-05-29] MEDS ORDERED: LACTULOSE SYRUP 20 GM/30 ML UDC PO ONE (18:15)
[2022-05-29] MEDS ORDERED: XIFAXAN550 MG PO (18:17)
== END 2022-05-29 18:43 | disposition home or self-care (01) ==
LOC: ER 15:22
DX: K76.82 Hepatic encephalopathy (principal); N28.9 Disorder of kidney and ureter, unspecified; K74.60 Unspecified cirrhosis of liver; E11.9 Type 2 diabetes mellitus without complications; J44.9 Chronic obstructive pulmonary disease, unspecified; I10 Essential (primary) hypertension; F17.200 Nicotine dependence, unspecified, uncomplicated; Z20.822 Contact with and (suspected) exposure to COVID-19; Z79.02 Long term (current) use of antithrombotics/antiplatelets; Z79.82 Long term (current) use of aspirin; Z79.899 Other long term (current) drug therapy
CPT/HCPCS: 0223U; 36415; 70450; 71045; 80053; 80320; 80329; 82140; 82550; 82553; 83690; 83735; 84484; 85025; 85610; 85730; 93005; 99284; J7040

== ENCOUNTER 2022-07-10 14:12 | Emergency (ER) | payer MEDICARE ==
[~2022-07-10] VITALS: Ht 172.7 cm; Wt 58.1 kg
[2022-07-10] MEDS ORDERED: KETOROLAC TROMETHAMINE 30 MG/ML VIAL IM STA (14:25)
[2022-07-10] MEDS ORDERED: NAPROXEN250 MG PO (16:09)
== END 2022-07-10 16:30 | disposition home or self-care (01) ==
LOC: ER 14:18
DX: M25.551 Pain in right hip (principal); W11.XXXA Fall on and from ladder, initial encounter; Y92.89 Other specified places as the place of occurrence of the external cause; I10 Essential (primary) hypertension; E11.9 Type 2 diabetes mellitus without complications; J44.9 Chronic obstructive pulmonary disease, unspecified; K76.9 Liver disease, unspecified; F17.210 Nicotine dependence, cigarettes, uncomplicated
CPT/HCPCS: 73502; 99283; J1885

== ENCOUNTER 2022-07-29 13:42 | Inpatient (IN) | payer MEDICARE ==
[~2022-07-29] VITALS: Ht 172.7 cm; Wt 58.1 kg
[~2022-07-29 13:42] MED LIST changes: +NAPROXEN250 MG PO
[2022-07-29 14:23] LABS: BASOPHILS % 0.4 % (0.0-1.0); EOSINOPHILS # (AUTO) 0.3 (0.0-0.4); EOSINOPHILS % 3.7 % (0.0-6.0); HEMATOCRIT 40.4 % (38.2-49.6); HEMOGLOBIN 13.7 g/dL (14.0-18.0); LYMPHOCYTES # (AUTO) 1.3 (1.0-3.2); LYMPHOCYTES % 16.8 % (18.0-39.1); MEAN CORPUSCULAR HEMOGLOBIN 31.9 pg (28-32); MEAN CORPUSCULAR HGB CONC 33.9 g/dL (31-35); MONOCYTES # (AUTO) 0.5 (0.2-0.8); MONOCYTES % 6.1 % (4.4-11.3); NEUTROPHILS # (AUTO) 5.4 (2.1-6.9); NEUTROPHILS % 72.7 % (38.7-80.0); PLATELET COUNT 91 x10e3/uL (140-360); RED CELL DISTRIBUTION WIDTH 15.3 % (11.7-14.4)
[2022-07-29 14:38] LABS: ALBUMIN 3.3 g/dL (3.5-5.0); ALBUMIN/GLOBULIN RATIO 1.1 (0.8-2.0); ANION GAP 13.2 mmol/L (8-16); CALCIUM 9.3 mg/dL (8.4-10.2); CREATININE, SERUM 2.57 mg/dL (0.72-1.25)
[2022-07-29 14:42] LABS: POTASSIUM 5.2 mmol/L (3.5-5.1)
[2022-07-29] MEDS ORDERED: ALBUTEROL SULF 0.083% NEB SOLN 3 ML NEB NEB STA (16:26)
[2022-07-29] MEDS ORDERED: DEXTROSE 50% SYRINGE 50 ML IV STA (16:26)
[2022-07-29] MEDS ORDERED: INSULIN REGULAR, HUMAN 100 UNIT/1 ML IV ONE (16:30)
[2022-07-29] MEDS ORDERED: SODIUM CHLORIDE 0.9% 1000ML 1,000 ML IV ONE ×2 (16:30)
[2022-07-29] MEDS ORDERED: ONDANSETRON HCL INJ 2MG/ML 2ML 2 MG/ML VIAL IV PRN (16:45)
[2022-07-29] MEDS ORDERED: CALCIUM GLUC 1 G/50 ML NACL 100 ML IV ONE (17:00)
[2022-07-29] MEDS ORDERED: SODIUM BICARBONATE 8.4% INJ 50 ML SYR IV ONE (17:00)
[2022-07-29] MEDS ORDERED: CALCIUM GLUC 1 G/50 ML NACL 50 ML IV ONE (17:08)
[2022-07-29] MEDS: LACTULOSE SYRUP 20 GM/30 ML UDC PO SCH (17:32)
[2022-07-29] MEDS: SODIUM CHLORIDE 0.9% 1000ML 1,000 ML IV SCH (18:06)
[2022-07-29 19:24] VITALS: PULSE 65; RESP 16; O2SAT 97
[2022-07-29 20:17] LABS: CLARITY,URINE CLEAR (CLEAR); COLOR,URINE YELLOW (YELLOW); KETONES,URINE NEGATIVE (NEGATIVE); LEUKOCYTE ESTERASE ,URINE NEGATIVE (NEGATIVE); NITRITE,URINE NEGATIVE (NEGATIVE); PROTEIN,URINE DIPSTICK NEGATIVE (NEGATIVE); URINE UROBILINOGEN 0.2 mg/dL (0.2 - 1)
[2022-07-29 20:30] LABS: BACTERIA,URINE FEW /HPF; WBC,URINE (MAN) 0-5 /HPF (0-5)
[2022-07-29 20:45] VITALS: BP 150/53; PULSE 74; RESP 18; TEMP 98.2; O2SAT 100
[2022-07-29 21:20] VITALS: BP 163/52; PULSE 83; RESP 20; TEMP 97.7; O2SAT 95
[2022-07-30] VITALS (8 sets, daily range): BP systolic 130–141; BP diastolic 49–65; PULSE 63–88; RESP 16–23; TEMP 97.2–98.9; O2SAT 96–100
[2022-07-30] MEDS: SODIUM CHLORIDE 0.9% 1000ML 1,000 ML IV SCH ×4 (01:00→23:14)
[2022-07-30 07:56] LABS: BASOPHILS % 0.8 % (0.0-1.0); EOSINOPHILS # (AUTO) 0.1 (0.0-0.4); EOSINOPHILS % 3.4 % (0.0-6.0); HEMATOCRIT 32.1 % (38.2-49.6); HEMOGLOBIN 10.4 g/dL (14.0-18.0); LYMPHOCYTES # (AUTO) 0.8 (1.0-3.2); LYMPHOCYTES % 21.5 % (18.0-39.1); MEAN CORPUSCULAR HEMOGLOBIN 31.2 pg (28-32); MEAN CORPUSCULAR HGB CONC 32.4 g/dL (31-35); MEAN CORPUSCULAR VOLUME 96.4 fL (81-99); MONOCYTES # (AUTO) 0.3 (0.2-0.8); MONOCYTES % 7.4 % (4.4-11.3); NEUTROPHILS # (AUTO) 2.5 (2.1-6.9); NEUTROPHILS % 66.6 % (38.7-80.0); RED BLOOD COUNT 3.33 x10e6/uL (4.3-5.7)
[2022-07-30 08:11] LABS: PLATELET COUNT 47 x10e3/uL (140-360)
[2022-07-30 08:24] LABS: ALBUMIN 2.5 g/dL (3.5-5.0); ALBUMIN/GLOBULIN RATIO 1.1 (0.8-2.0); ANION GAP 10.7 mmol/L (8-16); CALCIUM 8.2 mg/dL (8.4-10.2); CREATININE, SERUM 1.63 mg/dL (0.72-1.25); POTASSIUM 4.7 mmol/L (3.5-5.1)
[2022-07-30] MEDS: LACTULOSE SYRUP 20 GM/30 ML UDC PO SCH ×3 (09:18→20:05)
[2022-07-31] VITALS (9 sets, daily range): BP systolic 140–152; BP diastolic 49–59; PULSE 61–68; RESP 17–18; TEMP 97.9–98.6; O2SAT 96–100
[2022-07-31] MEDS: SODIUM CHLORIDE 0.9% 1000ML 1,000 ML IV SCH ×2 (04:35→16:32)
[2022-07-31] MEDS: LACTULOSE SYRUP 20 GM/30 ML UDC PO SCH ×3 (09:00→20:38)
[2022-07-31 13:30] LABS: ANION GAP 8.4 mmol/L (8-16); CREATININE, SERUM 1.18 mg/dL (0.72-1.25); POTASSIUM 4.4 mmol/L (3.5-5.1)
[2022-08-01] VITALS: BP 161/58; PULSE 65; RESP 16; TEMP 98.6; O2SAT 99
[2022-08-01] MEDS: SODIUM CHLORIDE 0.9% 1000ML 1,000 ML IV SCH (02:01)
[2022-08-01 04:00] VITALS: BP 137/55; PULSE 61; RESP 17; TEMP 98.3; O2SAT 98
[2022-08-01 06:39] LABS: ANION GAP 8.5 mmol/L (8-16); CALCIUM 7.8 mg/dL (8.4-10.2); POTASSIUM 4.5 mmol/L (3.5-5.1)
[2022-08-01] MEDS: LACTULOSE SYRUP 20 GM/30 ML UDC PO SCH (08:20)
[2022-08-01] MEDS ORDERED: LACTULOSE20 GM/30 M PO (08:20)
[2022-08-01] MEDS ORDERED: SODIUM BICARBO650 MG PO (08:23)
[2022-08-01] MEDS ORDERED: CLOPIDOGREL BISULFATE 75 MG TAB PO SCH (09:00)
[2022-08-01] MEDS ORDERED: SODIUM BICARBONATE 650 MG TAB PO SCH (09:00)
[2022-08-01] MEDS ORDERED: MULTIVITAMINS/MINERALS TAB PO SCH (09:00)
[2022-08-01] MEDS ORDERED: RIFAXIMIN 550 MG TABLET PO SCH (09:00)
[2022-08-01] MEDS ORDERED: NON-FORMULARY MEDICATION (Fluticasone/Umeclidin/Vilanter (Trelegy Ellipta 100-62.5-25) 1 P INH SCH (09:00)
[2022-08-01] MEDS ORDERED: PANTOPRAZOLE SOD 40 MG TABEC PO SCH (09:00)
[2022-08-01 09:28] VITALS: BP 147/54; PULSE 67; RESP 18; TEMP 98.7; O2SAT 98
[2022-08-01 09:35] VITALS: BP 147/54; PULSE 67; RESP 18; TEMP 98.7; O2SAT 97
[2022-08-01] MEDS ORDERED: ONDANSETRON HCL 4 MG ORAL DISINTEGRATING TAB PO PRN (10:30)
[2022-08-01] MEDS ORDERED: TRAZODONE HCL 50 MG TAB PO SCH (21:00)
[2022-08-01] MEDS ORDERED: METOPROLOL SUCCINATE 50 MG TAB XL PO SCH (21:00)
[2022-08-01] MEDS ORDERED: FERROUS SULFATE 325 MG TAB PO SCH (21:00)
[2022-08-01] MEDS ORDERED: SIMVASTATIN 40 MG TAB PO SCH (21:00)
[2022-08-01] MEDS ORDERED: PRAMIPEXOLE DIHYDROCHLORIDE 1 MG TAB PO SCH (21:00)
== END 2022-08-01 11:40 | disposition home or self-care (01) | DRG 433 ==
LOC: ER 13:48 → ERHOLD 16:36 → MED/SURG3 20:06
PROVIDERS: ADMIT Internal Medicine; ATTEND Internal Medicine
DX: K70.30 Alcoholic cirrhosis of liver without ascites (principal); E87.20 Acidosis, unspecified; N17.9 Acute kidney failure, unspecified; I48.20 Chronic atrial fibrillation, unspecified; K76.82 Hepatic encephalopathy; F10.20 Alcohol dependence, uncomplicated; D69.59 Other secondary thrombocytopenia; Z72.0 Tobacco use; E11.9 Type 2 diabetes mellitus without complications; I10 Essential (primary) hypertension
CPT/HCPCS: 0223U; 36415; 70450; 80048; 80053; 80320; 81001; 82140; 82948; 84132; 85025; 93005; 94640; 94799; 96361; 99285; J7030; J7799

== ENCOUNTER 2022-09-03 20:41 | Inpatient (IN) | payer OTHER, MEDICARE ==
[~2022-09-03] VITALS: Ht 172.7 cm; Wt 58.1 kg
[~2022-09-03 20:41] MED LIST changes: +SODIUM BICARBO650 MG PO
[2022-09-03 20:56] LABS: BASOPHILS # (AUTO) 0.1 (0.0-0.1); BASOPHILS % 0.5 % (0.0-1.0); EOSINOPHILS # (AUTO) 0.6 (0.0-0.4); EOSINOPHILS % 5.7 % (0.0-6.0); HEMATOCRIT 34.8 % (38.2-49.6); LYMPHOCYTES # (AUTO) 0.9 (1.0-3.2); LYMPHOCYTES % 9.7 % (18.0-39.1); MEAN CORPUSCULAR HEMOGLOBIN 31.7 pg (28-32); MEAN CORPUSCULAR HGB CONC 34.5 g/dL (31-35); MEAN CORPUSCULAR VOLUME 92.1 fL (81-99); MONOCYTES # (AUTO) 0.8 (0.2-0.8); NEUTROPHILS # (AUTO) 7.2 (2.1-6.9); NEUTROPHILS % 75.6 % (38.7-80.0); PLATELET COUNT 88 x10e3/uL (140-360); RED BLOOD COUNT 3.78 x10e6/uL (4.3-5.7)
[2022-09-03 21:18] LABS: ALBUMIN 3.2 g/dL (3.5-5.0); ALBUMIN/GLOBULIN RATIO 1.1 (0.8-2.0); ANION GAP 14.6 mmol/L (8-16); CALCIUM 8.5 mg/dL (8.4-10.2); CREATININE, SERUM 1.32 mg/dL (0.72-1.25); POTASSIUM 4.6 mmol/L (3.5-5.1)
[2022-09-03 21:37] LABS: CREATINE KINASE 31 IU/L (30-200)
[2022-09-04] VITALS (13 sets, daily range): BP systolic 118–144; BP diastolic 51–60; PULSE 52–98; RESP 17–22; TEMP 98.1–98.7; O2SAT 94–99
[2022-09-04] MEDS ORDERED: SODIUM CHLORIDE FLUSH 10 ML SYR INJ PRN (00:45)
[2022-09-04 00:51] LABS: INR 1.17; PROTHROMBIN TIME 15.5 seconds (11.9-14.5)
[2022-09-04 00:52] LABS: PARTIAL THROMBOPLASTIN TIME 33.2 seconds (23.8-35.5)
[2022-09-04] MEDS: Morphine 4mg INJECTION 4 MG/ML INJ IV PRN ×2 (02:48→16:13)
[2022-09-04] MEDS: ONDANSETRON HCL INJ 2MG/ML 2ML 2 MG/ML VIAL IV PRN (02:48)
[2022-09-04] MEDS ORDERED: SIMETHICONE 80 MG CHEW PO PRN (13:45)
[2022-09-04] MEDS: METOPROLOL TARTRATE 25 MG TAB PO SCH ×2 (14:00→21:13)
[2022-09-04] MEDS: LACTULOSE SYRUP 20 GM/30 ML UDC PO SCH ×2 (15:08→21:07)
[2022-09-04] MEDS: SODIUM BICARBONATE 650 MG TAB PO SCH ×2 (15:09→21:08)
[2022-09-04 15:11] LABS: ALBUMIN 2.9 g/dL (3.5-5.0); BILIRUBIN,DIRECT 0.4 mg/dL (0.0-0.5); CHOL/HDL RATIO 3.2 (3.9-4.7)
[2022-09-04] MEDS: RIFAXIMIN 550 MG TABLET PO SCH (16:06)
[2022-09-04] MEDS ORDERED: SIMVASTATIN 20 MG TAB PO SCH (21:00)
[2022-09-04] MEDS: FERROUS SULFATE 325 MG TAB PO SCH (21:08)
[2022-09-04] MEDS: SIMVASTATIN 40 MG TAB PO SCH (21:08)
[2022-09-04] MEDS: TRAZODONE HCL 50 MG TAB PO SCH (21:08)
[2022-09-04] MEDS: PRAMIPEXOLE DIHYDROCHLORIDE 1 MG TAB PO SCH (21:08)
[2022-09-05] VITALS: BP 126/52; PULSE 66; RESP 18; TEMP 98.7; O2SAT 99
[2022-09-05 04:00] VITALS: BP 117/55; PULSE 61; RESP 18; TEMP 98.6; O2SAT 97
[2022-09-05] MEDS: ONDANSETRON HCL INJ 2MG/ML 2ML 2 MG/ML VIAL IV PRN ×2 (04:22→08:29)
[2022-09-05] MEDS: Morphine 4mg INJECTION 4 MG/ML INJ IV PRN ×2 (04:23→08:29)
[2022-09-05 05:19] LABS: BASOPHILS % 0.6 % (0.0-1.0); EOSINOPHILS # (AUTO) 0.3 (0.0-0.4); EOSINOPHILS % 6.9 % (0.0-6.0); HEMATOCRIT 32.5 % (38.2-49.6); HEMOGLOBIN 10.8 g/dL (14.0-18.0); LYMPHOCYTES # (AUTO) 0.6 (1.0-3.2); LYMPHOCYTES % 11.5 % (18.0-39.1); MEAN CORPUSCULAR HGB CONC 33.2 g/dL (31-35); MEAN CORPUSCULAR VOLUME 96.2 fL (81-99); MONOCYTES # (AUTO) 0.3 (0.2-0.8); MONOCYTES % 6.5 % (4.4-11.3); NEUTROPHILS # (AUTO) 3.6 (2.1-6.9); NEUTROPHILS % 74.1 % (38.7-80.0); PLATELET COUNT 69 x10e3/uL (140-360); RED BLOOD COUNT 3.38 x10e6/uL (4.3-5.7); RED CELL DISTRIBUTION WIDTH 16.2 % (11.7-14.4)
[2022-09-05 05:45] LABS: ANION GAP 15.7 mmol/L (8-16); CALCIUM 8.2 mg/dL (8.4-10.2); CREATININE, SERUM 1.51 mg/dL (0.72-1.25); POTASSIUM 4.7 mmol/L (3.5-5.1)
[2022-09-05] MEDS: LACTULOSE SYRUP 20 GM/30 ML UDC PO SCH ×3 (06:00→21:22)
[2022-09-05] MEDS: METOPROLOL TARTRATE 25 MG TAB PO SCH ×3 (06:00→21:24)
[2022-09-05 08:00] VITALS: BP 121/49; PULSE 66; RESP 19; TEMP 97.8; O2SAT 95
[2022-09-05] MEDS: SODIUM BICARBONATE 650 MG TAB PO SCH ×3 (08:17→21:19)
[2022-09-05] MEDS: RIFAXIMIN 550 MG TABLET PO SCH ×2 (08:17→16:42)
[2022-09-05] MEDS: FLUTICASONE PROPIONATE NASAL SPRAY NS SCH (08:21)
[2022-09-05] MEDS ORDERED: CHOLECALCIFEROL 25 MCG PO SCH (09:00)
[2022-09-05] MEDS: CHOLECALCIFEROL 1,000 UNIT TAB PO SCH (09:00)
[2022-09-05] MEDS: PANTOPRAZOLE SOD 40 MG TABEC PO SCH (09:00)
[2022-09-05 09:29] VITALS: BP 121/49; PULSE 66; RESP 19; TEMP 97.8; O2SAT 95
[2022-09-05] MEDS: SODIUM BICARBONATE 8.4% 50 ML in SODIUM CHLORIDE 0.45% 1,000 ML IV SCH (11:25)
[2022-09-05 12:00] VITALS: BP 124/50; PULSE 58; RESP 19; TEMP 97.9; O2SAT 90
[2022-09-05] MEDS ORDERED: ROCURONIUM BROMIDE 10 MG/ML 5ML VIAL IV ONE (12:53)
[2022-09-05] MEDS ORDERED: SEVOFLURANE INHAL SOLN 250 ML PEN BTL ONE (12:53)
[2022-09-05] MEDS ORDERED: POVIDONE IODINE 0.05% 0.05 % ML PO ONE (12:53)
[2022-09-05] MEDS ORDERED: Vancomycin IV 1 GM VIAL ONE ×2 (12:53→15:40)
[2022-09-05] MEDS ORDERED: SUCCINYLCHOLINE CHLORIDE 20 MG/ML 10ML VIAL ONE (12:53)
[2022-09-05] MEDS ORDERED: ONDANSETRON HCL INJ 2MG/ML 2ML 2 MG/ML VIAL ONE (12:53)
[2022-09-05] MEDS ORDERED: LIDOCAINE HCL 2% LOCAL INJ 5 ML SDV VIAL INJ ONE (12:53)
[2022-09-05] MEDS ORDERED: PROPOFOL IV EMULSION 10 MG/ML 20 ML VIAL ONE (12:53)
[2022-09-05] MEDS ORDERED: GLYCOPYRROLATE INJ 0.2 MG/ML VIAL ONE (12:53)
[2022-09-05] MEDS ORDERED: FENTANYL CITRATE/PF 100MCG/2 ML INJ ONE (13:55)
[2022-09-05] MEDS ORDERED: MIDAZOLAM HCL 2 MG/2 ML VIAL ONE (13:55)
[2022-09-05] MEDS ORDERED: ROPIVACAINE 246.25 MG, EPINEPHRINE HCL 1:1000 1ML 0.5 MG, CLONIDINE HCL 0.08 MG, KETORO... IV ONE ×5 (14:00)
[2022-09-05] MEDS ORDERED: SODIUM CHLORIDE 0.9% 250ML 250 ML ONE (15:35)
[2022-09-05] MEDS ORDERED: Vancomycin IV 500 MG ONE (15:41)
[2022-09-05] MEDS ORDERED: TRANEXAMIC ACID 20 ML ONE (15:41)
[2022-09-05] MEDS ORDERED: SODIUM CHLORIDE 0.9% 500ML 500 ML ONE (15:41)
[2022-09-05 20:00] VITALS: BP 158/60; PULSE 80; RESP 18; TEMP 97.6; O2SAT 96
[2022-09-05] MEDS ORDERED: SODIUM CHLORIDE 0.45% 0 ML ONE (20:41)
[2022-09-05] MEDS: FERROUS SULFATE 325 MG TAB PO SCH (21:19)
[2022-09-05] MEDS: PRAMIPEXOLE DIHYDROCHLORIDE 1 MG TAB PO SCH (21:21)
[2022-09-05] MEDS: TRAZODONE HCL 50 MG TAB PO SCH (21:21)
[2022-09-05] MEDS: SIMVASTATIN 40 MG TAB PO SCH (21:22)
[2022-09-06] VITALS (10 sets, daily range): BP systolic 118–161; BP diastolic 45–58; PULSE 66–81; RESP 15–20; TEMP 98.1–99.1; O2SAT 94–97
[2022-09-06 05:39] LABS: BASOPHILS % 0.6 % (0.0-1.0); EOSINOPHILS # (AUTO) 0.2 (0.0-0.4); EOSINOPHILS % 4.4 % (0.0-6.0); HEMATOCRIT 27.1 % (38.2-49.6); LYMPHOCYTES # (AUTO) 0.3 (1.0-3.2); LYMPHOCYTES % 7.1 % (18.0-39.1); MEAN CORPUSCULAR HEMOGLOBIN 31.5 pg (28-32); MEAN CORPUSCULAR HGB CONC 33.2 g/dL (31-35); MEAN CORPUSCULAR VOLUME 94.8 fL (81-99); MONOCYTES # (AUTO) 0.4 (0.2-0.8); MONOCYTES % 8.6 % (4.4-11.3); NEUTROPHILS # (AUTO) 3.8 (2.1-6.9); NEUTROPHILS % 78.7 % (38.7-80.0); PLATELET COUNT 70 x10e3/uL (140-360); RED BLOOD COUNT 2.86 x10e6/uL (4.3-5.7); RED CELL DISTRIBUTION WIDTH 16.3 % (11.7-14.4)
[2022-09-06] MEDS: Vancomycin IV 1 GM in SODIUM CHLORIDE 0.9% 250ML 250 ML IV SCH ×2 (05:45→15:11)
[2022-09-06] MEDS: ONDANSETRON HCL INJ 2MG/ML 2ML 2 MG/ML VIAL IV PRN (05:59)
[2022-09-06] MEDS: Morphine 4mg INJECTION 4 MG/ML INJ IV PRN (05:59)
[2022-09-06] MEDS: LACTULOSE SYRUP 20 GM/30 ML UDC PO SCH ×3 (05:59→20:53)
[2022-09-06] MEDS: SODIUM BICARBONATE 8.4% 50 ML in SODIUM CHLORIDE 0.45% 1,000 ML IV SCH (05:59)
[2022-09-06 06:02] LABS: CALCIUM 7.7 mg/dL (8.4-10.2); CREATININE, SERUM 1.28 mg/dL (0.72-1.25)
[2022-09-06] MEDS: FLUTICASONE PROPIONATE NASAL SPRAY NS SCH (09:00)
[2022-09-06] MEDS: METOPROLOL TARTRATE 25 MG TAB PO SCH ×2 (09:00→20:51)
[2022-09-06] MEDS: CHOLECALCIFEROL 1,000 UNIT TAB PO SCH (09:33)
[2022-09-06] MEDS: PANTOPRAZOLE SOD 40 MG TABEC PO SCH (09:33)
[2022-09-06] MEDS: SODIUM BICARBONATE 650 MG TAB PO SCH ×3 (09:33→20:50)
[2022-09-06] MEDS: RIFAXIMIN 550 MG TABLET PO SCH ×2 (09:33→18:39)
[2022-09-06] MEDS: CELECOXIB 100 MG CAP PO SCH ×2 (09:33→18:40)
[2022-09-06] MEDS: RIVAROXABAN 10 MG TABLET PO SCH (18:39)
[2022-09-06] MEDS: KETOROLAC TROMETHAMINE 30 MG/ML VIAL IV PRN (18:39)
[2022-09-06] MEDS ORDERED: ACETAMINOPHEN 1000 MG/100 ML IV PRN (19:00)
[2022-09-06] MEDS: FERROUS SULFATE 325 MG TAB PO SCH (20:50)
[2022-09-06] MEDS: PRAMIPEXOLE DIHYDROCHLORIDE 1 MG TAB PO SCH (20:50)
[2022-09-06] MEDS: TRAZODONE HCL 50 MG TAB PO SCH (20:50)
[2022-09-06] MEDS: SIMVASTATIN 40 MG TAB PO SCH (20:51)
[2022-09-07] VITALS (10 sets, daily range): BP systolic 106–143; BP diastolic 44–59; PULSE 63–83; RESP 15–20; TEMP 97.7–98.6; O2SAT 93–99
[2022-09-07] MEDS: SODIUM BICARBONATE 8.4% 50 ML in SODIUM CHLORIDE 0.45% 1,000 ML IV SCH (02:08)
[2022-09-07 04:52] LABS: BASOPHILS % 0.5 % (0.0-1.0); EOSINOPHILS # (AUTO) 0.2 (0.0-0.4); HEMATOCRIT 24.5 % (38.2-49.6); HEMOGLOBIN 8.2 g/dL (14.0-18.0); LYMPHOCYTES # (AUTO) 0.4 (1.0-3.2); LYMPHOCYTES % 9.8 % (18.0-39.1); MEAN CORPUSCULAR HEMOGLOBIN 31.8 pg (28-32); MEAN CORPUSCULAR HGB CONC 33.5 g/dL (31-35); MONOCYTES # (AUTO) 0.5 (0.2-0.8); MONOCYTES % 11.3 % (4.4-11.3); NEUTROPHILS # (AUTO) 2.9 (2.1-6.9); NEUTROPHILS % 72.9 % (38.7-80.0); PLATELET COUNT 55 x10e3/uL (140-360); RED BLOOD COUNT 2.58 x10e6/uL (4.3-5.7); RED CELL DISTRIBUTION WIDTH 16.2 % (11.7-14.4)
[2022-09-07 05:18] LABS: ANION GAP 11.1 mmol/L (8-16); CALCIUM 7.7 mg/dL (8.4-10.2); CREATININE, SERUM 1.31 mg/dL (0.72-1.25); POTASSIUM 4.1 mmol/L (3.5-5.1)
[2022-09-07] MEDS: LACTULOSE SYRUP 20 GM/30 ML UDC PO SCH ×3 (06:09→21:05)
[2022-09-07] MEDS: METOPROLOL TARTRATE 25 MG TAB PO SCH ×2 (09:00→21:05)
[2022-09-07] MEDS: FLUTICASONE PROPIONATE NASAL SPRAY NS SCH (09:00)
[2022-09-07] MEDS: PANTOPRAZOLE SOD 40 MG TABEC PO SCH (09:43)
[2022-09-07] MEDS: SODIUM BICARBONATE 650 MG TAB PO SCH ×3 (09:44→21:05)
[2022-09-07] MEDS: CELECOXIB 100 MG CAP PO SCH ×2 (09:44→16:40)
[2022-09-07] MEDS: CHOLECALCIFEROL 1,000 UNIT TAB PO SCH (09:44)
[2022-09-07] MEDS: RIFAXIMIN 550 MG TABLET PO SCH ×2 (09:44→16:37)
[2022-09-07] MEDS: RIVAROXABAN 10 MG TABLET PO SCH (16:37)
[2022-09-07] MEDS: TRAZODONE HCL 50 MG TAB PO SCH (21:03)
[2022-09-07] MEDS: FERROUS SULFATE 325 MG TAB PO SCH (21:03)
[2022-09-07] MEDS: SIMVASTATIN 40 MG TAB PO SCH (21:05)
[2022-09-07] MEDS: PRAMIPEXOLE DIHYDROCHLORIDE 1 MG TAB PO SCH (21:05)
[2022-09-07] MEDS: KETOROLAC TROMETHAMINE 30 MG/ML VIAL IV PRN (21:14)
[2022-09-08] MEDS: SODIUM BICARBONATE 8.4% 50 ML in SODIUM CHLORIDE 0.45% 1,000 ML IV SCH (01:13)
[2022-09-08 01:23] VITALS: BP 132/52; PULSE 70; RESP 16; TEMP 97.7; O2SAT 94
[2022-09-08 04:57] LABS: BASOPHILS % 0.4 % (0.0-1.0); EOSINOPHILS # (AUTO) 0.1 (0.0-0.4); EOSINOPHILS % 3.5 % (0.0-6.0); HEMATOCRIT 22.3 % (38.2-49.6); HEMOGLOBIN 7.7 g/dL (14.0-18.0); LYMPHOCYTES # (AUTO) 0.3 (1.0-3.2); LYMPHOCYTES % 12.2 % (18.0-39.1); MEAN CORPUSCULAR HEMOGLOBIN 32.1 pg (28-32); MEAN CORPUSCULAR HGB CONC 34.5 g/dL (31-35); MEAN CORPUSCULAR VOLUME 92.9 fL (81-99); MONOCYTES # (AUTO) 0.3 (0.2-0.8); MONOCYTES % 10.6 % (4.4-11.3); NEUTROPHILS # (AUTO) 1.9 (2.1-6.9); NEUTROPHILS % 72.9 % (38.7-80.0); PLATELET COUNT 51 x10e3/uL (140-360); RED CELL DISTRIBUTION WIDTH 15.9 % (11.7-14.4)
[2022-09-08 05:15] LABS: ANION GAP 13.7 mmol/L (8-16); CALCIUM 7.7 mg/dL (8.4-10.2); CREATININE, SERUM 1.15 mg/dL (0.72-1.25); POTASSIUM 3.7 mmol/L (3.5-5.1)
[2022-09-08 05:30] VITALS: BP 147/48; PULSE 72; RESP 18; TEMP 98.1; O2SAT 95
[2022-09-08] MEDS: LACTULOSE SYRUP 20 GM/30 ML UDC PO SCH (05:44)
[2022-09-08] MEDS ORDERED: XARELTO10 MG PO (07:17)
[2022-09-08] MEDS ORDERED: ACETAMINOPHEN-1 EAC3 PO (07:19)
[2022-09-08] MEDS ORDERED: TYLENOL325 MG PO (07:19)
[2022-09-08 07:59] VITALS: PULSE 87; RESP 16; O2SAT 98
[2022-09-08 08:34] VITALS: BP 140/54; PULSE 78; RESP 16; TEMP 98.1; O2SAT 96
[2022-09-08] MEDS: PANTOPRAZOLE SOD 40 MG TABEC PO SCH (08:34)
[2022-09-08] MEDS: SODIUM BICARBONATE 650 MG TAB PO SCH (08:34)
[2022-09-08] MEDS: CHOLECALCIFEROL 1,000 UNIT TAB PO SCH (08:34)
[2022-09-08] MEDS: RIFAXIMIN 550 MG TABLET PO SCH (08:34)
[2022-09-08] MEDS: METOPROLOL TARTRATE 25 MG TAB PO SCH (08:36)
== END 2022-09-08 10:26 | disposition home health service (06) | DRG 522 ==
LOC: ER 20:50 → ERHOLD 09-04 00:43 → MED/SURG 09-04 01:43
PROVIDERS: ADMIT Internal Medicine; ATTEND Internal Medicine
PROC: 0SRS0JZ Replacement of Left Hip Joint, Femoral Surface with Synthetic Substitute, Open Approach (ICD-10-PCS; principal; 2022-09-05 16:55)
DX: S72.002A Fracture of unspecified part of neck of left femur, initial encounter for closed fracture (principal); M97.02XA Periprosthetic fracture around internal prosthetic left hip joint, initial encounter; N17.9 Acute kidney failure, unspecified; I48.20 Chronic atrial fibrillation, unspecified; F10.188 Alcohol abuse with other alcohol-induced disorder; E87.20 Acidosis, unspecified; W01.0XXA Fall on same level from slipping, tripping and stumbling without subsequent striking against object, initial encounter; K70.30 Alcoholic cirrhosis of liver without ascites; D69.6 Thrombocytopenia, unspecified; F17.210 Nicotine dependence, cigarettes, uncomplicated; J43.9 Emphysema, unspecified; I25.10 Atherosclerotic heart disease of native coronary artery without angina pectoris; N18.32 Chronic kidney disease, stage 3b; D50.9 Iron deficiency anemia, unspecified; Z86.19 Personal history of other infectious and parasitic diseases; I12.9 Hypertensive chronic kidney disease with stage 1 through stage 4 chronic kidney disease, or unspecified chronic kidney disease; E78.5 Hyperlipidemia, unspecified; Y92.89 Other specified places as the place of occurrence of the external cause; E11.22 Type 2 diabetes mellitus with diabetic chronic kidney disease; Z20.822 Contact with and (suspected) exposure to COVID-19; Z87.440 Personal history of urinary (tract) infections; Z79.899 Other long term (current) drug therapy
CPT/HCPCS: 36415; 70450; 71045; 72125; 72170; 76000; 80048; 80053; 80061; 80076; 80320; 82140; 82550; 83036; 85025; 85610; 85730; 86850; 86900; 93005; 94799; 99285; C1713; C1776; J0171; J0330; J1885; J2001; J2250; J2270; J2405; J2795; J3370; J7040; J7050; P9034

== ENCOUNTER 2022-12-19 14:02 | Inpatient (IN) | payer MEDICARE ==
[~2022-12-19] VITALS: Ht 172.7 cm; Wt 59.5 kg
[~2022-12-19 14:02] MED LIST changes: +ACETAMINOPHEN-1 EAC3 PO; +AMLODIPINE BESY10 MG PO; +LACTULOSE10 GM/151 PO; +METOPROLOL TART50 MG PO; +NICODERM CQ1 EAC2 TOP; +ONDANSETRON ODT4 MG PO; +PREDNISONE5 MG PO; +SPIRONOLACTONE100 MG PO; +TRAZODONE HCL50 MG PO; +TRELEGY ELLIPT1 EAC1 PO; +TYLENOL325 MG PO; +VENTOLIN HFA18 GM INH; +VENTOLIN HFA18 GM PO; +WELLBUTRIN XL150 MG PO; +XARELTO10 MG PO
[2022-12-19] MEDS ORDERED: METHYLPREDNISOLONE SOD SUCC 125 MG/2ML VIAL IV STA (14:05)
[2022-12-19] MEDS ORDERED: ALBUTEROL/IPRATROPIUM 3 ML NEB NEB STA (14:05)
[2022-12-19 15:19] LABS: BASOPHILS % 0.1 % (0.0-1.0); EOSINOPHILS # (AUTO) 0.2 (0.0-0.4); EOSINOPHILS % 1.7 % (0.0-6.0); HEMATOCRIT 28.8 % (38.2-49.6); HEMOGLOBIN 9.6 g/dL (14.0-18.0); LYMPHOCYTES # (AUTO) 0.7 (1.0-3.2); LYMPHOCYTES % 6.9 % (18.0-39.1); MEAN CORPUSCULAR HEMOGLOBIN 28.7 pg (28-32); MEAN CORPUSCULAR HGB CONC 33.3 g/dL (31-35); MONOCYTES # (AUTO) 0.6 (0.2-0.8); MONOCYTES % 6.1 % (4.4-11.3); NEUTROPHILS # (AUTO) 8.7 (2.1-6.9); NEUTROPHILS % 84.5 % (38.7-80.0); PLATELET COUNT 95 x10e3/uL (140-360); RED BLOOD COUNT 3.35 x10e6/uL (4.3-5.7); RED CELL DISTRIBUTION WIDTH 16.4 % (11.7-14.4); WHITE BLOOD COUNT 10.34 x10e3/uL (4.8-10.8)
[2022-12-19 15:36] LABS: ALBUMIN 2.9 g/dL (3.5-5.0); ALBUMIN/GLOBULIN RATIO 1.3 (0.8-2.0); ANION GAP 14.4 mmol/L (8-16); CALCIUM 7.6 mg/dL (8.4-10.2); CREATININE, SERUM 1.15 mg/dL (0.72-1.25); POTASSIUM 3.4 mmol/L (3.5-5.1)
[2022-12-19] MEDS ORDERED: SODIUM CHLORIDE FLUSH 10 ML SYR INJ PRN (16:15)
[2022-12-19 16:20] VITALS: PULSE 65; RESP 23; O2SAT 95
[2022-12-19] MEDS: FUROSEMIDE INJ 10 MG/ML 4 ML VIAL IV SCH (16:35)
[2022-12-19 18:38] LABS: AMPHETAMINES SCREEN,URINE NEGATIVE (NEGATIVE); BENZODIAZEPINES SCREEN,URINE NEGATIVE (NEGATIVE); PHENCYCLIDINE SCREEN,URINE NEGATIVE (NEGATIVE)
[2022-12-19 19:51] LABS: CLARITY,URINE CLEAR (CLEAR); COLOR,URINE YELLOW (YELLOW); KETONES,URINE NEGATIVE (NEGATIVE); LEUKOCYTE ESTERASE ,URINE NEGATIVE (NEGATIVE); NITRITE,URINE NEGATIVE (NEGATIVE); PROTEIN,URINE DIPSTICK NEGATIVE (NEGATIVE); URINE UROBILINOGEN 0.2 mg/dL (0.2 - 1)
[2022-12-19 19:53] LABS: EPITHELIAL CELLS,URINE RARE /LPF; RBC,URINE 0-5 /HPF (0-5); WBC,URINE (MAN) 0-5 /HPF (0-5)
[2022-12-19 20:18] VITALS: BP 123/50; PULSE 70; RESP 20; TEMP 98.2; O2SAT 93
[2022-12-19 21:00] VITALS: BP 123/50; PULSE 70; RESP 20; TEMP 98.2; O2SAT 93
[2022-12-20] VITALS (10 sets, daily range): BP systolic 120–128; BP diastolic 47–55; PULSE 67–75; RESP 16–23; TEMP 97.9–98.8; O2SAT 92–98
[2022-12-20] MEDS: FUROSEMIDE INJ 10 MG/ML 4 ML VIAL IV SCH ×2 (00:14→09:06)
[2022-12-20 05:29] LABS: HEMATOCRIT 23.2 % (38.2-49.6); LYMPHOCYTES # (AUTO) 0.3 (1.0-3.2); LYMPHOCYTES % 7.6 % (18.0-39.1); MEAN CORPUSCULAR HEMOGLOBIN 29.6 pg (28-32); MEAN CORPUSCULAR HGB CONC 34.5 g/dL (31-35); MEAN CORPUSCULAR VOLUME 85.9 fL (81-99); MONOCYTES # (AUTO) 0.1 (0.2-0.8); MONOCYTES % 4.3 % (4.4-11.3); NEUTROPHILS # (AUTO) 2.9 (2.1-6.9); NEUTROPHILS % 87.5 % (38.7-80.0); PLATELET COUNT 58 x10e3/uL (140-360); RED CELL DISTRIBUTION WIDTH 16.4 % (11.7-14.4); WHITE BLOOD COUNT 3.28 x10e3/uL (4.8-10.8)
[2022-12-20 05:52] LABS: ALBUMIN 2.6 g/dL (3.5-5.0); ALBUMIN/GLOBULIN RATIO 1.4 (0.8-2.0); ANION GAP 14.3 mmol/L (8-16); CALCIUM 7.1 mg/dL (8.4-10.2); CREATININE, SERUM 1.3 mg/dL (0.72-1.25); POTASSIUM 3.3 mmol/L (3.5-5.1)
[2022-12-20] MEDS ORDERED: TRAMADOL HCL 50 MG TAB PO PRN (10:15)
[2022-12-20] MEDS ORDERED: ONDANSETRON HCL 4 MG ORAL DISINTEGRATING TAB PO PRN (10:15)
[2022-12-20] MEDS ORDERED: ALBUTEROL 90 MCG/ACT INHALER INH PRN ×2 (10:15→12:00)
[2022-12-20] MEDS ORDERED: ACETAMINOPHEN 325 MG TAB PO PRN (10:15)
[2022-12-20] MEDS: MIDODRINE 2.5 MG TAB PO SCH ×3 (10:15→16:00)
[2022-12-20] MEDS ORDERED: FUROSEMIDE20 MG PO (10:29)
[2022-12-20] MEDS: BUPROPION HCL 150 MG TABCR PO SCH ×2 (11:17→20:51)
[2022-12-20] MEDS: NICOTINE 21 MG/EA PATCH TOP SCH (11:17)
[2022-12-20] MEDS ORDERED: ALBUTEROL 90 MCG/ACT INHALER INH SCH (12:00)
[2022-12-20] MEDS: SODIUM BICARBONATE 650 MG TAB PO SCH (16:03)
[2022-12-20] MEDS: RIFAXIMIN 550 MG TABLET PO SCH (16:03)
[2022-12-20] MEDS: METOPROLOL TARTRATE 50 MG TAB PO SCH (16:03)
[2022-12-20] MEDS: TRAZODONE HCL 50 MG TAB PO SCH (20:51)
[2022-12-21] VITALS (11 sets, daily range): BP systolic 116–134; BP diastolic 50–91; PULSE 60–93; RESP 17–20; TEMP 97.9–98.6; O2SAT 89–99
[2022-12-21] MEDS: SODIUM BICARBONATE 650 MG TAB PO SCH ×2 (09:03→17:28)
[2022-12-21] MEDS: BUPROPION HCL 150 MG TABCR PO SCH ×2 (09:03→21:00)
[2022-12-21] MEDS: FUROSEMIDE INJ 10 MG/ML 4 ML VIAL IV SCH (09:03)
[2022-12-21] MEDS: PANTOPRAZOLE SOD 40 MG TABEC PO SCH (09:03)
[2022-12-21] MEDS: MIDODRINE 2.5 MG TAB PO SCH (09:03)
[2022-12-21] MEDS: NICOTINE 21 MG/EA PATCH TOP SCH (09:04)
[2022-12-21] MEDS: MULTIVITAMINS/MINERALS TAB PO SCH (09:04)
[2022-12-21] MEDS: RIFAXIMIN 550 MG TABLET PO SCH ×2 (09:04→17:28)
[2022-12-21] MEDS: AMLODIPINE BESYLATE 5 MG TAB PO SCH (09:04)
[2022-12-21] MEDS: PREDNISONE 5 MG TAB PO SCH (09:04)
[2022-12-21] MEDS: METOPROLOL TARTRATE 50 MG TAB PO SCH ×2 (09:06→17:29)
[2022-12-21 09:33] LABS: % IRON SATURATION 10 % (15-50); IRON 23 ug/dL (65-175); TOTAL IRON BINDING CAPACITY 235 ug/dL (261-478); TRANSFERRIN 168 mg/dL (174-364)
[2022-12-21] MEDS: MIDODRINE HCL 5 MG TABLET PO SCH ×2 (13:05→17:21)
[2022-12-21] MEDS: TRAZODONE HCL 50 MG TAB PO SCH (21:00)
[2022-12-22] VITALS (11 sets, daily range): BP systolic 108–126; BP diastolic 48–62; PULSE 60–67; RESP 17–19; TEMP 97.6–98.5; O2SAT 92–98
[2022-12-22 06:14] LABS: BASOPHILS % 0.4 % (0.0-1.0); EOSINOPHILS # (AUTO) 0.1 (0.0-0.4); HEMATOCRIT 23.9 % (38.2-49.6); HEMOGLOBIN 8.1 g/dL (14.0-18.0); LYMPHOCYTES # (AUTO) 0.4 (1.0-3.2); LYMPHOCYTES % 15.9 % (18.0-39.1); MEAN CORPUSCULAR HEMOGLOBIN 30.2 pg (28-32); MEAN CORPUSCULAR HGB CONC 33.9 g/dL (31-35); MEAN CORPUSCULAR VOLUME 89.2 fL (81-99); MONOCYTES # (AUTO) 0.2 (0.2-0.8); NEUTROPHILS % 73.3 % (38.7-80.0); RED BLOOD COUNT 2.68 x10e6/uL (4.3-5.7); RED CELL DISTRIBUTION WIDTH 16.8 % (11.7-14.4)
[2022-12-22 06:39] LABS: ANION GAP 13.2 mmol/L (8-16); CREATININE, SERUM 1.12 mg/dL (0.72-1.25); POTASSIUM 3.2 mmol/L (3.5-5.1)
[2022-12-22 06:52] LABS: CALCIUM 6.3 mg/dL (8.4-10.2); PLATELET COUNT 39 x10e3/uL (140-360)
[2022-12-22 07:23] LABS: PHOSPHORUS 3.8 MG/DL (2.3-4.7)
[2022-12-22 07:37] LABS: THYROID STIMULATING HORMONE 0.815 uIU/mL (0.350-4.940)
[2022-12-22] MEDS: RIFAXIMIN 550 MG TABLET PO SCH ×2 (08:36→17:54)
[2022-12-22] MEDS: PANTOPRAZOLE SOD 40 MG TABEC PO SCH (08:36)
[2022-12-22] MEDS: AMLODIPINE BESYLATE 5 MG TAB PO SCH (08:36)
[2022-12-22] MEDS: FUROSEMIDE INJ 10 MG/ML 4 ML VIAL IV SCH (08:36)
[2022-12-22] MEDS: SODIUM BICARBONATE 650 MG TAB PO SCH ×2 (08:36→17:54)
[2022-12-22] MEDS: MULTIVITAMINS/MINERALS TAB PO SCH (08:38)
[2022-12-22] MEDS: NICOTINE 21 MG/EA PATCH TOP SCH (08:38)
[2022-12-22] MEDS: MIDODRINE HCL 5 MG TABLET PO SCH ×3 (08:38→15:43)
[2022-12-22] MEDS: PREDNISONE 5 MG TAB PO SCH (08:38)
[2022-12-22] MEDS: METOPROLOL TARTRATE 50 MG TAB PO SCH ×2 (08:38→17:55)
[2022-12-22] MEDS ORDERED: MAGNESIUM SULFATE 2GM/50ML IV SCH (10:00)
[2022-12-22] MEDS: BUPROPION HCL 150 MG TABCR PO SCH ×2 (10:02→21:34)
[2022-12-22] MEDS: MAGNESIUM SULFATE 2GM/50ML 50 ML IV SCH ×3 (10:03→15:43)
[2022-12-22] MEDS ORDERED: POTASSIUM CHLORIDE 10MEQ EA PO ONE (10:30)
[2022-12-22] MEDS: IRON SUCROSE 100 MG in SODIUM CHLORIDE 0.9% 100 ML IV SCH (12:24)
[2022-12-22] MEDS: MAGNESIUM OXIDE 400 MG TAB PO SCH (17:54)
[2022-12-22] MEDS: TRAZODONE HCL 50 MG TAB PO SCH (21:34)
[2022-12-23] VITALS (8 sets, daily range): BP systolic 116–133; BP diastolic 50–75; PULSE 65–75; RESP 18–20; TEMP 97.8–99; O2SAT 92–96
[2022-12-23 06:06] LABS: BASOPHILS % 0.2 % (0.0-1.0); EOSINOPHILS # (AUTO) 0.1 (0.0-0.4); EOSINOPHILS % 3.2 % (0.0-6.0); HEMATOCRIT 25.4 % (38.2-49.6); HEMOGLOBIN 8.3 g/dL (14.0-18.0); LYMPHOCYTES # (AUTO) 0.6 (1.0-3.2); LYMPHOCYTES % 13.8 % (18.0-39.1); MEAN CORPUSCULAR HEMOGLOBIN 28.3 pg (28-32); MEAN CORPUSCULAR HGB CONC 32.7 g/dL (31-35); MEAN CORPUSCULAR VOLUME 86.7 fL (81-99); MONOCYTES # (AUTO) 0.3 (0.2-0.8); MONOCYTES % 7.4 % (4.4-11.3); NEUTROPHILS # (AUTO) 3.1 (2.1-6.9); NEUTROPHILS % 75.2 % (38.7-80.0); PLATELET COUNT 51 x10e3/uL (140-360); RED BLOOD COUNT 2.93 x10e6/uL (4.3-5.7); RED CELL DISTRIBUTION WIDTH 16.2 % (11.7-14.4); WHITE BLOOD COUNT 4.06 x10e3/uL (4.8-10.8)
[2022-12-23 06:33] LABS: ANION GAP 12.9 mmol/L (8-16); CREATININE, SERUM 1.22 mg/dL (0.72-1.25); POTASSIUM 3.9 mmol/L (3.5-5.1)
[2022-12-23 06:42] LABS: CALCIUM 6.8 mg/dL (8.4-10.2)
[2022-12-23 07:01] LABS: MAGNESIUM 1.7 MG/DL (1.3-2.1); PHOSPHORUS 3.1 MG/DL (2.3-4.7)
[2022-12-23] MEDS: MIDODRINE HCL 5 MG TABLET PO SCH ×3 (08:32→16:41)
[2022-12-23] MEDS: IRON SUCROSE 100 MG in SODIUM CHLORIDE 0.9% 100 ML IV SCH (09:58)
[2022-12-23] MEDS: BUPROPION HCL 150 MG TABCR PO SCH (09:59)
[2022-12-23] MEDS: MULTIVITAMINS/MINERALS TAB PO SCH (09:59)
[2022-12-23] MEDS: SODIUM BICARBONATE 650 MG TAB PO SCH ×2 (09:59→16:47)
[2022-12-23] MEDS: RIFAXIMIN 550 MG TABLET PO SCH ×2 (09:59→16:47)
[2022-12-23] MEDS: AMLODIPINE BESYLATE 5 MG TAB PO SCH (09:59)
[2022-12-23] MEDS: PANTOPRAZOLE SOD 40 MG TABEC PO SCH (09:59)
[2022-12-23] MEDS: MAGNESIUM OXIDE 400 MG TAB PO SCH ×2 (09:59→16:47)
[2022-12-23] MEDS: PREDNISONE 5 MG TAB PO SCH (09:59)
[2022-12-23] MEDS: NICOTINE 21 MG/EA PATCH TOP SCH (10:00)
[2022-12-23] MEDS: FUROSEMIDE INJ 10 MG/ML 4 ML VIAL IV SCH (10:00)
[2022-12-23] MEDS: METOPROLOL TARTRATE 50 MG TAB PO SCH ×2 (10:00→16:52)
[2022-12-24] MEDS ORDERED: FUROSEMIDE 40 MG TAB PO SCH (09:00)
== END 2022-12-23 19:02 | DRG 291 ==
LOC: ER 14:18 → ERHOLD 16:12 → MED/SURG3 19:59
PROVIDERS: ADMIT Internal Medicine; ATTEND Internal Medicine
PROC: 0HQ0XZZ Repair Scalp Skin, External Approach (ICD-10-PCS; principal; 2022-12-19)
DX: I13.0 Hypertensive heart and chronic kidney disease with heart failure and stage 1 through stage 4 chronic kidney disease, or unspecified chronic kidney disease (principal); I50.33 Acute on chronic diastolic (congestive) heart failure; N18.9 Chronic kidney disease, unspecified; R29.6 Repeated falls; J43.9 Emphysema, unspecified; E78.5 Hyperlipidemia, unspecified; S01.01XA Laceration without foreign body of scalp, initial encounter; W18.39XA Other fall on same level, initial encounter; Y92.9 Unspecified place or not applicable; Z20.822 Contact with and (suspected) exposure to COVID-19; F10.11 Alcohol abuse, in remission; D69.6 Thrombocytopenia, unspecified; K70.30 Alcoholic cirrhosis of liver without ascites; I48.91 Unspecified atrial fibrillation
CPT/HCPCS: 36415; 70450; 71045; 72125; 80048; 80053; 80307; 81001; 82550; 82607; 82746; 83036; 83540; 83690; 83735; 83880; 84100; 84443; 84466; 84484; 85025; 93005; 94640; 94799; 99284; J1756; J1940; J2930; J3475; J7050; J7512; U0002

== ENCOUNTER 2023-01-15 20:32 | Emergency (ER) | payer MEDICARE ==
[~2023-01-15] VITALS: Ht 172.7 cm; Wt 59.4 kg
[~2023-01-15 20:32] MED LIST changes: +FUROSEMIDE20 MG PO
[2023-01-15 21:35] LABS: BASOPHILS % 0.3 % (0.0-1.0); EOSINOPHILS # (AUTO) 0.2 (0.0-0.4); EOSINOPHILS % 1.7 % (0.0-6.0); HEMATOCRIT 37.4 % (38.2-49.6); HEMOGLOBIN 12.3 g/dL (14.0-18.0); LYMPHOCYTES # (AUTO) 0.7 (1.0-3.2); LYMPHOCYTES % 7.1 % (18.0-39.1); MEAN CORPUSCULAR HEMOGLOBIN 29.6 pg (28-32); MEAN CORPUSCULAR HGB CONC 32.9 g/dL (31-35); MEAN CORPUSCULAR VOLUME 90.1 fL (81-99); MONOCYTES # (AUTO) 0.5 (0.2-0.8); MONOCYTES % 5.2 % (4.4-11.3); NEUTROPHILS # (AUTO) 8.5 (2.1-6.9); NEUTROPHILS % 85.2 % (38.7-80.0); PLATELET COUNT 125 x10e3/uL (140-360); RED BLOOD COUNT 4.15 x10e6/uL (4.3-5.7); RED CELL DISTRIBUTION WIDTH 17.3 % (11.7-14.4); WHITE BLOOD COUNT 9.95 x10e3/uL (4.8-10.8)
[2023-01-15 21:38] LABS: INR 1.08; PROTHROMBIN TIME 14.2 seconds (11.9-14.5)
[2023-01-15 21:39] LABS: PARTIAL THROMBOPLASTIN TIME 27.6 seconds (23.8-35.5)
[2023-01-15 21:49] LABS: ALBUMIN 3.6 g/dL (3.5-5.0); ALBUMIN/GLOBULIN RATIO 1.1 (0.8-2.0); ANION GAP 16.6 mmol/L (8-16); CALCIUM 8.8 mg/dL (8.4-10.2); CREATININE, SERUM 1.21 mg/dL (0.72-1.25); POTASSIUM 3.6 mmol/L (3.5-5.1)
[2023-01-16 02:02] VITALS: BP 149/61; O2SAT 99
== END 2023-01-16 01:35 | disposition other institution (70) ==
LOC: ER 20:40
DX: R06.02 Shortness of breath (principal); R22.1 Localized swelling, mass and lump, neck; S22.42XA Multiple fractures of ribs, left side, initial encounter for closed fracture; T79.7XXA Traumatic subcutaneous emphysema, initial encounter; J93.9 Pneumothorax, unspecified; I10 Essential (primary) hypertension; J44.9 Chronic obstructive pulmonary disease, unspecified; E78.5 Hyperlipidemia, unspecified; K21.9 Gastro-esophageal reflux disease without esophagitis; R94.31 Abnormal electrocardiogram [ECG] [EKG]
CPT/HCPCS: 36415; 71045; 71250; 80053; 85025; 85610; 85730; 93005; 99284